=== PATIENT | male | born 1970 | race Caucasian/White ===

== ENCOUNTER → 2018-11-25 | Outpatient (CLI) | payer OTHER ==
[~2018-11-25] MED LIST: ALUMAG30SU PO; AMOX500 PO; ASPI81CH PO; ATOR40TA PO; Amoxicillin500 MG PO; Augmentin 875-1 EACH PO; BCOIRO; CLOP75 PO; FAMO20 PO; GABA300 PO; GLIP5 PO; IBUP800 PO; Isosorbide Mono30 MG PO; LISI5 PO; MELO7.5 PO; METF500 PO; METF500C PO; METO10 PO; METO25 PO; METO5A PO; METR500 PO; Nitroglycerin0.4 MG SL; PROM25 PO; Pepcid20 MG PO; Q PAP PO; RXCODACESY PO; THERMOTABS PO; Tylenol325 MG PO; Zofran Odt4 MG PO
[2018-11-25 20:49] LABS: Campylobacter Sp Not Detected (NOT DETECT)
[2018-11-25 20:50] LABS: Adenovirus F 40/41 Not Detected (NOT DETECT); Astrovirus Not Detected (NOT DETECT); Cryptosporidium Not Detected (NOT DETECT); Cyclospora Cayetanensis Not Detected (NOT DETECT); E. Coli O157 Not Detected (NOT DETECT); Entamoeba Histolytica Not Detected (NOT DETECT); Enteroaggregative E. coli-EAEC Not Detected (NOT DETECT); Enteropathogenic E. coli-EPEC Not Detected (NOT DETECT); Enterotoxigenic E. coli-ETEC Not Detected (NOT DETECT); Giardia Lamblia Not Detected (NOT DETECT); Norovirus GI/GII Not Detected (NOT DETECT); Plesiomonas Shigelloides Not Detected (NOT DETECT); Rotavirus A Not Detected (NOT DETECT); Salmonella Sp Not Detected (NOT DETECT); Sapovirus Not Detected (NOT DETECT); Shiga Toxin-prod E. coli-STEC Not Detected (NOT DETECT); Shigella/Enteroin E. coli-EIEC Not Detected (NOT DETECT); Vibrio Cholerae Not Detected (NOT DETECT); Vibrio Sp Not Detected (NOT DETECT); Yersinia Enterocolitica Not Detected (NOT DETECT)
[2018-11-26 13:11] LABS: Stool Occult Bld Immuno 1 Negative (NEGATIVE)
== END | disposition home or self-care (01) ==
LOC: LAB SHORT 17:31 → LAB 17:31
PROVIDERS: Nurse Practitioner Family
DX: K52.9 Noninfective gastroenteritis and colitis, unspecified (principal)
CPT/HCPCS: 0097U; 82274; 89055

== ENCOUNTER → 2019-01-27 | Outpatient (CLI) | payer OTHER ==
[2019-01-27 15:56] LABS: Microalb/Creat Ratio UR, Rand 4.934 mg/g (0.000-30.000); Microalbumin, Random Urine 6.71 mg/L (0.000-20.000)
== END | disposition home or self-care (01) ==
LOC: LAB SHORT 11:43 → LAB 11:43
PROVIDERS: Nurse Practitioner Family
DX: E11.40 Type 2 diabetes mellitus with diabetic neuropathy, unspecified (principal)
CPT/HCPCS: 82043; 82570

== ENCOUNTER 2020-11-07 17:19 | Inpatient (IN) | payer OTHER ==
[~2020-11-07] VITALS: Ht 167.6 cm; Wt 95.5 kg
[2020-11-07 18:06] LABS: BASOPHILS ABSOLUTE AUTO 0.02 K/mm3 (0.00-0.23); BASOPHILS PERCENT AUTO 0 % (0-2); EOSINOPHILS PERCENT AUTO 0 % (0-6); Hematocrit 40.5 % (37.0-53.0); Hemoglobin 13.9 g/dL (13.5-17.5); IMMATURE GRAN ABSOLUTE AUTO 0.04 K/mm3 (0.00-0.10); IMMATURE GRAN PERCENT AUTO 0 % (0-1); LYMPHOCYTES ABSOLUTE AUTO 0.57 K/mm3 (0.84-5.20); LYMPHOCYTES PERCENT AUTO 6 % (21-46); MONOCYTES ABSOLUTE AUTO 0.78 K/mm3 (0.16-1.47); MONOCYTES PERCENT AUTO 8 % (4-13); Mean Corpuscular HGB Conc 34.3 g/dL (31.5-36.5); Mean Corpuscular Volume 93 fL (80-100); Mean Platelet Volume 11.3 fL (9.1-12.4); NEUTROPHILS ABSOLUTE AUTO 8.14 K/mm3 (1.96-9.15); NEUTROPHILS PERCENT AUTO 85 % (41-73); Platelet Count 261 K/mm3 (150-400); RDW Coefficient Variation 13.2 % (11.7-14.2); RDW Standard Deviation 45.5 fL (35.1-46.3); Red Blood Cell Count 4.35 M/mm3 (4.30-5.90); White Blood Cell Count 9.55 K/mm3 (4.00-11.30)
[2020-11-07 18:35] LABS: Alanine Aminotransfer (ALT/SGP 41 U/L (12-78); Albumin, Blood 2.6 g/dL (3.4-5.0); Albumin/Globulin Ratio 0.5 (0.8-1.8); Alk Phos 70 U/L (50-136); Anion Gap 8 mmol/L (6-16); Aspartate Aminotrans (AST/SGOT 45 U/L (12-37); Bilirubin, Total 0.8 mg/dL (0.1-1.0); Blood Urea Nitrogen 39 mg/dL (8-24); Bun/Creatinine Ratio 40.2 (12.0-20.0); CO2, Blood 23 mmol/L (21-32); Chloride, Blood 99 mmol/L (98-108); Creatinine, Blood 0.97 mg/dL (0.60-1.20); Globulin, Blood 5.4 g/dL (2.2-4.0); Glomerular Filtration Rate >60 (60-); Glucose, Blood 449 mg/dL (70-99); Potassium, Blood 4.9 mmol/L (3.5-5.5); Sodium, Blood 130 mmol/L (136-145); Troponin I 0.229 ng/mL (0.000-0.040)
[2020-11-07 19:15] LABS: PCO2 Arterial 32.1 mmHg (35-45); PO2 Arterial 50.5 mmHg (80-100); pH Blood Arterial 7.44 (7.35-7.45)
[2020-11-08 00:24] LABS: Troponin I 0.239 ng/mL (0.000-0.040)
[2020-11-08 08:25] LABS: BASOPHILS ABSOLUTE AUTO 0.01 K/mm3 (0.00-0.23); BASOPHILS PERCENT AUTO 0 % (0-2); EOSINOPHILS PERCENT AUTO 0 % (0-6); Hematocrit 38.4 % (37.0-53.0); Hemoglobin 12.8 g/dL (13.5-17.5); IMMATURE GRAN ABSOLUTE AUTO 0.05 K/mm3 (0.00-0.10); IMMATURE GRAN PERCENT AUTO 1 % (0-1); LYMPHOCYTES ABSOLUTE AUTO 0.39 K/mm3 (0.84-5.20); LYMPHOCYTES PERCENT AUTO 4 % (21-46); MONOCYTES ABSOLUTE AUTO 0.56 K/mm3 (0.16-1.47); MONOCYTES PERCENT AUTO 6 % (4-13); Mean Corpuscular HGB 31.5 pg (26.0-34.0); Mean Corpuscular HGB Conc 33.3 g/dL (31.5-36.5); Mean Corpuscular Volume 95 fL (80-100); Mean Platelet Volume 11.2 fL (9.1-12.4); NEUTROPHILS ABSOLUTE AUTO 8.67 K/mm3 (1.96-9.15); NEUTROPHILS PERCENT AUTO 90 % (41-73); Platelet Count 252 K/mm3 (150-400); RDW Coefficient Variation 13.1 % (11.7-14.2); RDW Standard Deviation 46.1 fL (35.1-46.3); Red Blood Cell Count 4.06 M/mm3 (4.30-5.90); White Blood Cell Count 9.68 K/mm3 (4.00-11.30)
[2020-11-08 08:49] LABS: Alanine Aminotransfer (ALT/SGP 39 U/L (12-78); Albumin, Blood 2.2 g/dL (3.4-5.0); Albumin/Globulin Ratio 0.4 (0.8-1.8); Alk Phos 66 U/L (50-136); Anion Gap 9 mmol/L (6-16); Aspartate Aminotrans (AST/SGOT 40 U/L (12-37); Bilirubin, Total 0.6 mg/dL (0.1-1.0); Blood Urea Nitrogen 42 mg/dL (8-24); Bun/Creatinine Ratio 46.6 (12.0-20.0); CO2, Blood 21 mmol/L (21-32); CPK Creatine Kinase 232 U/L (39-308); Calcium, Blood 8.9 mg/dL (8.5-10.1); Chloride, Blood 105 mmol/L (98-108); Glomerular Filtration Rate >60 (60-); Glucose, Blood 494 mg/dL (70-99); Potassium, Blood 5.1 mmol/L (3.5-5.5); Sodium, Blood 135 mmol/L (136-145); Total Protein, Blood 7.2 g/dL (6.4-8.2); Troponin I 0.219 ng/mL (0.000-0.040)
--- NOTE | 2020-11-08 10:45 | NUR ---
ADMIT NOTE RECEIVED REPORT FOR LIFEGUARD, PT TO ROOM AT APPROX 0916. 4 PERSON ASSIST TRANSFER WITH SLIDER SHEET. PT ORIENTED TO ROOM AND CALL LIGHT. EDUCATED ON FALL RISK AND RESPIRITORY STATUS. PT REFUSING TO PRONE ON STOMACH, ENCOURAGING PT TO REMAIN ON SIDE. WHEN PT LAYING FLAT ON BACK SPO2 79-81%, ONCE TURNED TO SIDE SPO2 90-93%. PT ALERT, ORIENTED x3; ANXIOUS AND FREQUENTLY REQUESTING WATER. PT ON AIRVO AT 60L AT 89% FIO2, TITRATED TO HIGH FLOW VIA BIPAP, AT 65L AT 90% FIO2. RESP RATE 28-40'S. LS DIM T/O. PT RECEIVING IV STEROIDS AND FLUIDS. WILL CONTINUE TO MONITOR.
--- NOTE | 2020-11-08 11:47 | NUR ---
PT TURNED ON HIS BACK, SPO2 DOWN TO 80'S; RE-EDUCATED PT ON PRONING AND THE NEED TO AT LEAST SLEEP ON HIS SIDE, PT PRONED SELF, SPO2 AT 97%. WILL CONTINUE TO MONITOR.
--- NOTE | 2020-11-08 18:20 | NUR ---
SHIFT SUMMARY PT A&Ox3; FORGETFUL AND NONCOMPLIANT. PT RESTING IN BED, ASSIST WTIH REPOSITIONS ON SIDE AND PRONE. PT ON AIRVO 65L FIO2 % 100; SPO2 88-94%. WHILE IN THE PRONE POSITION PT 95-97%. WHEN PATIENT LYING FLAT ON BACK AND WITH MOVEMENT PT DESATURATES TO 78-84%, SLOW IN RECOVERY. PT HAS BEEN FORGETFUL AT TIMES. REPEITIVTLY REQUESTING. ORAL CARE COMPLETED Q4H. PT DENIES PAIN, CHEST PAIN, NAUSEA AND DIZZINESS. CBG >300 T/O SHIFT, DR PRUETT NOTIFIED, NEW ORDERS TO CHANGE SEMGLEE TO DAILY FROM BID. PT RECEIVED IV STEROIDS. OTHER VSS. NO OTHER ACUTE CHANGES NOTED DURING SHIFT. WILL CONTINUE TO MONITOR UNITL REPORT GIVEN TO ONCOMING RN.
[2020-11-09 04:04] LABS: Hematocrit 40.1 % (37.0-53.0); Hemoglobin 13.2 g/dL (13.5-17.5); Mean Corpuscular HGB 31.5 pg (26.0-34.0); Mean Corpuscular HGB Conc 32.9 g/dL (31.5-36.5); Mean Corpuscular Volume 96 fL (80-100); Mean Platelet Volume 10.9 fL (9.1-12.4); Platelet Count 333 K/mm3 (150-400); RDW Coefficient Variation 13.2 % (11.7-14.2); RDW Standard Deviation 46.5 fL (35.1-46.3); Red Blood Cell Count 4.19 M/mm3 (4.30-5.90); White Blood Cell Count 18.42 K/mm3 (4.00-11.30)
[2020-11-09 04:31] LABS: Anion Gap 8 mmol/L (6-16); Blood Urea Nitrogen 45 mg/dL (8-24); CO2, Blood 23 mmol/L (21-32); Calcium, Blood 9.1 mg/dL (8.5-10.1); Chloride, Blood 111 mmol/L (98-108); Creatinine, Blood 0.82 mg/dL (0.60-1.20); Glomerular Filtration Rate >60 (60-); Glucose, Blood 390 mg/dL (70-99); Potassium, Blood 4.7 mmol/L (3.5-5.5); Sodium, Blood 142 mmol/L (136-145)
--- NOTE | 2020-11-09 06:27 | NUR ---
SHIFT SUMMARY ASSUMED CARE OF PT AT 1900. PT IS A/OX3 WITH TIMES OF FORGETFULNESS. PT DOES NOT REMEMBER RECEIVING ICECHIPS OR IF HE ALREADY HAD AN ALCOHOL SWAB. HEART SOUNDS REGULAR. LUNG SOUNDS HAVE CRACKLES AT THE BASES. PT USED THE AIRVO T/O THE NIGHT, OCCASIONALLY TAKING IT OFF FOR A MOMENT BUT WILL PUT IT BACK IN WHEN TOLD. PT ENCOURAGED TO PRONE BUT WILL NOT STAY PRONED FOR LONG. PT HAS A CATHETER DRAING A LOT OF CLEAR YELLOW URINE. PT C/O BEING THIRST CONSTANTLY AND ASKING FOR WATER OR ICE CHIPS CONSTANTLY. PT BLOOD SUGAR HAS BEEN OVER 350 T/O THE NIGHT. HOSPITALIST CALLED MULTIPLE TIME DUE TO INCREASED HUMALOG NEEDS, EACH TIME ORDERING 10 UNITS OF HUMALOG WITH LITTLE EFFECT. CALL LIGHT IN REACH, BED IN LOWEST POSTION, BED ALARM ON.
--- NOTE | 2020-11-09 12:00 | NUR ---
REASSESSMENT PT HAS BEEN RESTING IN BED THROUGHOUT THE MORNING. CONTINUES TO HAVE SOME COARSE WHEEZES ON R SIDE. MAINTAINING SPO2 90-92% ON HI LACY 80L AND 100% WHEN SUPINE, 96-98% WHILE ON HIS SIDE OR PRONE. PT HAS BEEN TOLERATING WATER SO RECEIVED OK FROM DR. PRUETT TO START PT ON DIET. PT STATES HE ISN'T HUNGRY BUT IS EATING SOME LUNCH CURRENTLY. ALSO RECEIVED ORDERS FROM DR. PRUETT TO DO BLOOD SUGARS AND INSULIN Q6H IF PT ISN'T EATING AND AC/HS IF PT IS. SR, BP STABLE. CONTINUING TO MONITOR.
--- NOTE | 2020-11-09 17:35 | NUR ---
SHIFT SUMMARY PT REMAINS DEPENDENT ON THE HIGH FLOW OXYGEN. HE HAS BEEN AT 80L AND 100% TODAY. HE MAINTAINS SPO2 RIGHT AT 90 WHEN ON HIS BACK AND MID 90S ON HIS SIDE OR STOMACH. PT HAS BEEN COMPLIANT TODAY WITH PRONING WHEN REQUESTED BUT THIS EVENING HE IS GETTING IRRITATED WITH IT. HE SAYS HE IS TIRED OF LAYING ONHIS STOMACH OR BACK. EXPLAINED TO HIM WHY HE NEEDS TO AND WHAT WILL HAPPEN IF HE DOESN'T AND HIS OXYGEN NEEDS GO UP. PT SAYS HE IS BORED AND WANTS TO GO HOME. OFFERED TO TURN ON HIS TV BUT HE REFUSED. ASKED WHAT COULD BE DONE TO HELP ENTERTAIN HIM BUT HE DIDN'T HAVE ANY IDEAS. LUNGS ARE DIM ON THE LEFT, EXP WHEEZE ON THE RIGHT. SR, BP STABLE. CASTRO DRAINING CL YELLOW URINE. PT TOLERATING EATING. SPOKE WITH PT'S SISTER AND PROVIDED UPDATE. CONTINUE TO MONITOR.
--- NOTE | 2020-11-10 05:31 | NUR ---
SHIFT SUMMARY PT CONTINUES TO BE DEPENDENT ON HIGH FLOW O2 THERAPY. RT ATTEMPTED BIPAP FOR SLEEP, AFTER APPROX. 1 HOUR PT REMOVED MASK, DESATTED TO 65%. ONCE THE HIGH FLOW O2 WAS REPLACED SPO2 STABILIZED >90% AFTER A FEW MINUTES. AN ORDER FOR A PRN ANXIOLYTIC WAS OBTAINED. PT PRONED SELF FOR SLEEP AND WAS ABLE TO MAINTAIN SPO2 OF >95% FOR THE DURATION OF PRONE SLEEP. LUNG SOUNDS ARE DIMINISHED ON THE RIGHT AND THERE IS AN EXPIRATORY WHEEZE NOTED ON THE LEFT. NO OTHER ACUTE CHANGES NOTED.
--- NOTE | 2020-11-10 07:24 | NUR ---
ASSUMED CARE: PT CURRENTLY ON AIRVO AT 100% FIO2, SATS IN MID 80S WHEN NOT PRONING. NSR ON TELE. NO FURTHER NEEDS AT THIS TIME.
--- NOTE | 2020-11-10 14:39 | NUR ---
PT CALLED STAFF AND STATED HE NEEDS TO GO HOME BECAUSE HE HAS NO ONE TO TAKE CARE OF HIS DOGS. RN DISCUSSED THIS WITH PT AND WAS VERY BLUNT, REMINDING PT THAT HE REQUIRED 95% FIO2 ON AIRVO AND IS BREATHING RAPIDLY TRYING TO TALK TO STAFF. INFORMED HIM THAT AMA MEANS WE WOULD NOT BE ABLE TO ASSIST OR PROVIDE OXYGEN WHICH MEANS HE WOULD NOT LIKELY MAKE IT OUT THE DOOR BEFORE COLLAPSING. PT STATES HE WILL CALL MORE FAMILY TO DISCUSS AND APPEARS TO UNDERSTAND THAT HE CANNOT SAFELY GO HOME AT THIS TIME.
--- NOTE | 2020-11-10 16:41 | NUR ---
TELE CALLED REPORTING ST CHANGES. EKG DONE SHOWING POSSIBLE INFARCT. PT DENIES CHEST PAIN, NAUSEA OR SHOULDER PAIN. SPOKE WITH DR PRUETT AND SHOWED EKG. ORDERS FOR TROPONIN DUE TO PT DENYING CHEST PAIN. AWAITING LAB TO COME DRAW
--- NOTE | 2020-11-10 18:24 | NUR ---
SHIFT SUMMARY: PT ON AIRVO AT 80L WITH 95% FIO2. STILL GETS DYSPNEIC ON EXERTION. SATS HIGH 80S/LOW 90S ON THIS. DENIES CHEST PAIN. AWAITING TROPONIN LEVEL. NO FURTHER NEEDS AT THIS TIME.
--- NOTE | 2020-11-11 06:49 | NUR ---
SHIFT SUMMARY PT HAS BEEN ASLEEP FOR THE MAJORITY OF THE NIGHT. AT THE BEGINNING OF THE SHIFT PT STATED "I'M GOING HOME TOMORROW", THE PT WAS REORIENTED TO CURRENT SITUATION AND ABILITIES EASILY. PT PRONED SELF FOR SLEEP AND MAINTAINED SPO2 >90% WHILE PRONED, WHEN PT WAS SUPINE SPO2 WOULD RANGE 88-90%. AT ONE POINT THE PT REMOVED THE NASAL CANNULA AND REQUIRED VERBAL REDIRECTION BEFORE THE NASAL CANNULA COULD BE PUT BACK IN PLACE. NO OTHER ACUTE CHANGES NOTED.
--- NOTE | 2020-11-11 07:25 | NUR ---
ASSUMED CARE: PT RESTING QUIETLY ON AIRVO AT 80l AND 95% FIO2. ST ELEVATIONS NOTED ON TELE. NO ACUTE NEEDS AT THIS TIME.
--- NOTE | 2020-11-11 10:34 | NUR ---
REPEAT PARTIAL ECHO COMPLETE, COMPLETE ECHO ALREADY DONE 11/08/20
--- NOTE | 2020-11-11 12:30 | NUR ---
PT STARTED DESATURATING WITH AIRVO, COULD NOT MAINTAIN A O2 SAT GREATER THAN 88%. PT INITIALLY REFUSED TO PUT MASK ON. RN HAD A BLUNT CONVERSATION WITH PT ABOUT HIS OPTIONS INCLUDING CODE STATUS AND INTUBATION VS WEARING BIPAP MASK. PT EVENTUALLY AGREED TO WEAR MASK. AUBRIE ON SETTINGS 16/14 WITH 100% FIO2, SATTING MID 90S. DR PRUETT AWARE
--- NOTE | 2020-11-11 12:47 | NUR ---
pt struggling with wearing bipap. had nursing talk to him about being a dnr and comfort measures. he will comply and wants full treatment. will monitor how he is trending.
--- NOTE | 2020-11-11 19:10 | NUR ---
SHIFT SUMMARY: PT IS ON BIPAP WITH 85% FIO2. PT CONTINUES TO COMPLAIN ABOUT BIPAP AND WANTS IT OFF. STAFF CONTINUES TO BE BLUNT WITH HIM AND TELLING HIM THE POTENTIAL CONSEQUENCES OF NOT KEEPING MASK ON.
--- NOTE | 2020-11-12 05:10 | NUR ---
SHIFT SUMMARY PT CONTINUED TO WEAR MASK THROUGHOUT THE NIGHT, ONE INCIDENT OF LOOSENING THE FIT TO INEFFECTIVENESS WAS CORRECTED WITH EDUCATION. SPO2 MAINTAINED >90% FOR THE DURATION. PT PRONED SELF WHEN ASKED BUT SHIFTED TO SUPINE SHORTLY AFTER AND REFUSED TO PRONE AGAIN. CPAP MASK WAS REMOVED FOR PO MEDS AND SPO2 DROPPED QUICKLY TO 80%, ONCE MASK WAS REPLACED AN SPO2 OF >90% WAS ACHIEVED WITHIN 5 MINUTES. CURRENT CPAP SETTINGS ARE [id number]/80% FIO2. NO OTHER ACUTE CHANGES NOTED.
--- NOTE | 2020-11-12 16:41 | NUR ---
SHIFT SUMMARY NO ACUTE CHANGES THIS SHIFT. PT HAS REMAINED CPAP DEPENDENT THIS SHIFT. CPAP 14, FIO2 TITRATED DOWN TO 80%. PT PLACED ON AIRVO AT 80L, FIO2 100% FOR SHORT BREAK, BUT DID NOT TOLERATE LONG, WITH SPO2 DROPPING TO LOW 80'S QUICKLY. VITAL SIGNS HAVE REMAINED STABLE. NS INFUSING AT 75 ML/HR. CASTRO IN PLACE WITH YELLOW URINE OUTPUT. PT REPOSITIONS SELF INDEPENDENTLY. WILL CONTINUE TO MONITOR AND REPORT OFF TO ONCOMING RN.
--- NOTE | 2020-11-13 06:51 | NUR ---
SHIFT SUMMARY PATIENT SLEPT THROUGHOUT SHIFT, BUT WAS ABLE TO MAKE NEEDS KNOWN TO STAFF WITH USE OF CALL LIGHT. PATIENT IS A&OX4 AND SB ASSIST. THIS MORNING PATIENT DESATTED TO 84% AT LOWEST SPO2 WITH AIRVO @ 80LPM 100% FIO2; SWITCHED TO CPAP W/ PRESSURE 14 90% FIO2. SPO2 INCREASED TO 90'S. NO OTHER MAJOR CHANGES THROUGHOUT SHIFT.
--- NOTE | 2020-11-13 17:11 | NUR ---
Shift summary When care assumed patient on CPAP 14, FIO2 90%. Mid day pt switched to Airvo 70 ;/min, fio2 90%. Dr. Dailey at bedside during this time and updated on care being provided. Pt slow to respond when care assumed but has been move response t/o the day. Aware of location, event, and moves all extrems/turns self in bed. Airvo settings currently 70 L/MIN , FIO2 90%, SPO2 > 88%. NRS 80-90'S. VSS. George in place, clear/yellow output. On phone with family at the moment.
--- NOTE | 2020-11-13 22:29 | NUR ---
SLIDING SCALE COVERAGE CALL PLACED TO DR AUGUSTE, HOSPITALIST LOLLYPOP MACHINE OPERATOR, REGARDING HS BLOOD GLUCOSE LEVEL OF 396, DAY SHIFT INUSLIN DOSAGE CHANGES AND ADMINISTRATIONS WELL SLIDING SCALE DOSE OF [address] AUGUSTE, WILL ONLY GIVE THE SLIDING SCALE DOSAGE FOR GREATER THAN 350 AT THIS TIME. NO FURTHER ORDERS.
--- NOTE | 2020-11-14 06:08 | NUR ---
SHIFT SUMMARY NO MAJOR CHANGES TO PATIENT CONDITION DURING SHIFT. PATIENT USED CPAP AND AIRVO DURING THE NIGHT TO MAINTAIN SPO2 >88%. DISCUSSED OPTION OF PRONING TO PATIENT AND EXPLAINED THE BENEFITS. AT 0345, PATIENT SELF PRONED AND SPO2 INCREASED FROM HIGH 80'S/LOW 90'S TO MID TO HIGH 90'S. AT 0500 PATIENT SELF REPOSITIONED TO SUPINE.
--- NOTE | 2020-11-14 19:46 | NUR ---
SHIFT SUMMARY PT A/OX3-4 AND COOPERATIVE OF CARE; SLOW TO RESPOND. VSS THROUGHOUT SHIFT WITH O2 SATS >94%. PT WAS SWITHCED TO AIRVO @ 70L ON 100% FIO2 AROUND 1500; PT RESPONDED WELL. CASTRO IN PLACE AND DRAINING TO GRAVITY; URINE CLEAR/YELLOW. PT ABLE TO MOVE SELF IN BED.
--- NOTE | 2020-11-14 21:12 | NUR ---
HS BLOOD GLUCOSE SPOKE WITH DR SERRANO, HOSPITALIST MID LEVEL JAVA DEVELOPER, REGARDING PT HS BLOOD GLUCOSE LEVEL OF 401. WILL ADMINISTER ORDERED HIGH SLIDING SCALE COVERAGE DOSE OF 6 UNITS AT THIS TIME. PLAN TO READDRESS LONG ACTING INSULIN COVERAGE IN AM.
--- NOTE | 2020-11-15 07:20 | NUR ---
SHIFT SUMMARY PATIENT REMAINED ON CPAP 14/100% FOR JUST OVER HALF OF THE SHIFT WITH BREAKS USING AIRVO @ 70LPM 100% FIO2. SPO2 MAINTAINED 98-100% W/ CPAP AND HIGH 80'S-LOW 90'S WITH AIRVO. HS CBG WAS ELEVATED AT 401; ORDER OBTAINED FOR 6 UNITS AT THAT TIME WITH MONITORING ON DAY SHIFT. NO OTHER MAJOR CHANGES DURING SHIFT.
--- NOTE | 2020-11-15 17:05 | NUR ---
SHIFT SUMMARY PT REMAINED ON CPAP 14/100% THROUGHOUT SHIFT. PT STRUGGLED WITH ORAL MEDS AND WATER BY PRESENTING WITH COUGHS AFTER INTAKE; SATS DROPPED TO 70'S WHILE TAKING MEDS. PT WAS ALERT AT THE BEGINNING OF THE SHIFT; TOWARDS THE END OF SHIFT PT IS DIFFICULT TO ROUSE. PT DID NOT PRONE THIS SHIFT BUT WAS ABLE TO MOVE TO HIS SIDE ON HIS OWN. CASTRO IN PLACE DRAINING TO GRAVITY; YELLOW URINE. VSS T/O SHIFT WITH O2 SATS >92%.
--- NOTE | 2020-11-16 07:51 | NUR ---
SHIFT SUMMARY PT A+0X4. NO ACUTE EVENTS THIS SHIFT. VSS. O2 SATS MAINTAINED OVER 92% ON CPAP 14 80% FIO2. HR 90'S AND 100'S. DESATS WHILE DRINKING FLUIDS, CAUSING HIM TO COUGH. COUGHED AND DESATED WHILE TAKING MEDICATIONS. PT DENIED ANY PAIN. PT WAS INDEPENDENT WITH CHANGING POSITIONS THROUGHOUT SHIFT. CASTRO IN PLACE DRAINING URINE. LEFT IN BED SLEEPING WITH CALL ALARM AT SIDE
--- NOTE | 2020-11-16 08:00 | NUR ---
pt sitting up in bed eating breakfast, currently on airvo sats in the 80's, ate about half of the breakfast and took po meds one at a time, lungs are course t/o, resp even with some laboring, desats with any movement, has a course cough, placed him back on cpap and turned on side, sats are maintaining at 95% at this time, hrr, tele in place running sr per monitor, see strip, no edema noted, ppp+2, cap refill <3sec, vs stable, afebrile, piv is clear and patent, btx4, abd flat soft nontender, voids via arguello cath draining clear kentrell urine, skin c/w/d, maew, very weak, activity intolerance due to resp, call light in reach.
--- NOTE | 2020-11-16 18:29 | NUR ---
pt hasn't had any acute changes today, he sleeps when left undisturbed, he is allowing us to turn him but will not prone, o2 really drops when changed from cpap to airvo, but recovers quickly, v.s remain stable, call light in reach.
--- NOTE | 2020-11-17 07:17 | NUR ---
SHIFT SUMMARY NO ACUTE EVENTS THIS SHIFT. PT O2 SATS OVER 95% ON CPAP 15 90% FIO2. HR 84 NSR. BP STABLE. PT REPOSITIONED THROUGHOUT NIGHT Q2 HRS. DOES NOT WANT TO PRONE. PT DESATS SOON MASK IS REMOVED. ANXIOUS ABOUT CPAP REMOVAL, REFUSED PO MEDICATION, DID NOT WANT TO SWITCH TO AIRVO. NO PAIN STATED. IN BED RESTING WITH CALL ALARM AT SIDE. WILL CONTINUE TO MONITOR UNTIL REPORT GIVEN.
--- NOTE | 2020-11-17 08:00 | NUR ---
pt laying in bed awake a/ox3, on cpap at this time, sats are 90-92%, states he's ok, lungs are course t/o, resp even and unlabored, no cough noted, hrr, tele in place running sr per tele, see strip, no edema noted, ppp+2, cap refill <3sec, vs stable, afebrile, iv site is clear and patent, btx4, abd flat soft nontender, arguello cath draining clear yellow urine, skin c/w/d, suresh villeda, call light in reach.
--- NOTE | 2020-11-17 18:25 | NUR ---
pt sats dropped to the low 70's today, maxed on bipap, got him to prone, sats maintained in the 90's, he is tolerating it, pulminary consult was ordered, Dr. Lucia notified. call light in reach.l
--- NOTE | 2020-11-17 20:24 | NUR ---
CARE ASSUMPTION PT LYING ON LEFT SIDE W O2 SATS AT 94-96% W 100% FIO2. PT DENYING ANY PAIN OR NAUSEA AT THIS TIME. WP WNL. TEMP 97.7. PT ON BOTH BIOX MONIYOR AND DYNAMAP MMONITOR. PT'S BED TURNED SO HE CAN WATCH TV WHILE PRONING.
--- NOTE | 2020-11-17 22:09 | NUR ---
URINE ANALYSIS SPOKE TO ARTIFICIAL LIMB MAKERLINDA GRAYSON ABOUT NO HX OF UA POST CASTRO AND SHE DID NOT THINK IT WAS NEEDED AT THIS TIME.
--- NOTE | 2020-11-18 05:30 | NUR ---
SALSA DANCE INSTRUCTOR SUMMARY PT IS AXO X4 THIS SHIFT. PT HAS MAINTAINED O2 SATS >92% WHILE PRONED HOWEVER DID HAVE TWO EPISODES WHERE HE DESATURATED INTO THE 70'S WHEN MOVING AROUND AND COUGHING, IT TOOK SEVERAL MINUTES AT 100% FIO2 FOR THE PT TO RECOVER TO 90%. CPAP REMAINS AT 10 W 100% FIO2 THIS SHIFT. PT AFEBRILE THIS SHIFT W PEAK TEMP AT 97.7. TELE SHOWING SR IN THE 70'S ALL SHIFT. PT HAS BEEN NPO THIS SHIFT EXCEPT WHEN GIVEN A DRINK OF WATER WHICH AGGREVATED HIS COUGH CAUSING HIM TO DESAT. MATTHEW P[ATENT AND DRAINED 500ML DARK JILLIAN URINE THIS SHIFT.BP WNL AND STABLE THIS SHIFT. WILL REPORT TO ONCOMING RN.
--- NOTE | 2020-11-18 13:42 | NUR ---
ATTEMPTED TO UPDATE SISTER NO ANSWER AT THIS TIME
--- NOTE | 2020-11-18 17:51 | NUR ---
SHIFT SUMMARY PT ALERT AND ORIENTED X 4. HR STABLE. BP STABLE. OXYGEN SATURATION MAITNAINED ABOVE 90% ON CPAP AT 15 AND 90-100% FIO2. PT AGGITATED AT TIMES D/T NOT BEING ABLE TO TAKE CPAP OFF FOR EXTENDED PERIODS OF TIME TO EAT OR DRINK. PT INFORMED THAT NEW ORDERS FOR CLINIMIX WILL HELP PT MAINAIN ADEQUATE HYDRATION AND NUTRITION AT THIS TIME. PT TEARFUL AT TIMES STATING "IM NOT DOING ANYTHING WRONG" WHEN DESATING. PT PROVIDED WITH COMFORT AND REASURANCE THAT PT IS DOING DOING ALL OF THE PHYSICIANS AND NURSES RECOMMENDATIONS AND THIS SITUATION IS NOT HIS FUALT. PT MORE RELAXED SHIFT HAS GONE ON. ATTEMPTED TO CONTACT PT'S SISTER FOR UPDATE. NO ANSWER AT THIS TIME. PT ABLE TO TOLERATE SMALL BREAKS FROM BIPAP FOR SIPS OF WATER. PT ABLE TO TURN SELF IN BED AND PRONE DURING THE DAY. NS HELD AT THIS TIME D/T CLINIMIX GTT. WILL INFORM PHYSICIAN. CASTRO PATENT AND DRAINING. NO CP OR PRESSURE REPORTED. PT REFUSING ORAL CARE. WILL CONT TO MONITOR UNTIL REPORT GIVEN TO NIGHTSHIFT RN.
--- NOTE | 2020-11-18 18:42 | NUR ---
UPDATE DR. JONES CONSULTED REGARDING PT. D/T PT IN STABLE STATUS DR. JONES TO SIGN OFF AT THIS TIME. DR. AGEE NOTIFIED. ORDERS TO RENAL FUNCTION PANEL AND ORDERS TO D/C NS. SEE EHR.
--- NOTE | 2020-11-18 20:06 | NUR ---
ASSUMED CARE PT IS ALERT AND ORIENTED. PT DENIES CHEST PAIN. PT IS ON CPAP WITH SATS OF 85-93% ON 100% FIO2. WHEN TAKING SIPS OF WATER PT WILL DESAT TO LOW 80'S AND SLOWLY INCREASE. VITALS SIGNS ARE STABLE. PT REPORTS FEELING VERY HUNGRY AND HAS ASKED FOR MILKSHAKES AND FRUIT. HE IS AWARE OF NOT BEING ABLE TO MAINTAIN SATS WHEN TAKING OFF MASK. CALL LIGHT IS WITHIN REACH WILL CONTINUE TO MONITOR PT.
--- NOTE | 2020-11-18 21:38 | NUR ---
PT IS ALERT WITH VEBAL STIMULI OTHERWISE SLEEPING. PT REPORT HADACHE OF 6/10 DENIES NAUSEA. TREMORS ARE VISIBLE WITH HAND EXTENSION. PT DENIES CHEST PAIN. STS THAT HE "FEELS HORRIBLE." VITLAS ARE STABLE AND ON ROOM AIR WITH SATS ABOBE 90%. CALL LIGHT IS WITHIN REACH WILL CONTINUE TO MONITOR.
--- NOTE | 2020-11-18 21:45 | NUR ---
WAS ABLE TO GIVE PT ORAL MEDICATION AND TOLERATED WELL WITH A FEW SIPS. AFTER SATS RECOVERD ABOVE 90% HE HAD A COUPLE OF BITES OF FRUIT WHERE HE THEN DESATED TO LOW 60'S. PT WAS COUGHING. QUICKLY RECOVERED BACK TO HIGH 80'S. THIS NURSE ADVISED HIM THAT WE WOULD HOLD OFF ON ANYTHING PO FOR A BIT. PT REFUSED FRUIT TAKEN FROM BESIDE TABLE. PRONING WAS EPLAINED AND RECOMMENDED. CURRENTLY WITH SATS OF 94% ON CPAP 100% FIO2, WITH OCCASIONAL COUGHING.
[2020-11-19 04:16] LABS: Albumin, Blood 1.7 g/dL (3.4-5.0); Anion Gap 4 mmol/L (6-16); Blood Urea Nitrogen 27 mg/dL (8-24); Bun/Creatinine Ratio 38.7 (12.0-20.0); CO2, Blood 32 mmol/L (21-32); Calcium, Blood 8.6 mg/dL (8.5-10.1); Chloride, Blood 97 mmol/L (98-108); Glomerular Filtration Rate >60 (60-); Glucose, Blood 230 mg/dL (70-99); Phosphorus, Blood 3.1 mg/dL (2.5-4.9); Potassium, Blood 4.2 mmol/L (3.5-5.5); Sodium, Blood 133 mmol/L (136-145)
--- NOTE | 2020-11-19 06:23 | NUR ---
SHIFT SUMMARY PT IS ALERT AND ORIENTED. VITALS ARE STABLE. PT IS ON CPAP 15 AND 100% FI02 WITH SATS MAINTAINING ABOVE 88%. CURRENTLY ON 91%. PT DENIES CHEST PAIN/PRESSURE. PT WAS ABLE TO TAKE SIPS OF WATER, ENSURE AND SOME BITES OF FRUIT BUT WOULD DESAT TO LOW 70'S HIGH 60'S; WOULD QUICKLY RECOVER. PT REPORTED LEG PAIN DUE TO NEUROPATHY, GABAPENTIN WAS ORDERED. WAS UNABLE TO SLEEP AND WAS VERY ANXIOUS. PT HAS NOW BEEN SLEEPING SINCE 0300 AGTER MEDICATED. FLUIDS ARE RUNNING. CALL LIGHT IS WITHIN REACH.
--- NOTE | 2020-11-19 12:00 | NUR ---
Called to assist with patient lou was not doing well and assumed care from Nessa RN. patient proned on BIPAP and sats decreasing and RT and Benefit Authorizer Dr Alvarado came in to intubate. patient was unproned to intubate with 7.5 ET and 26 at teeth. Took quite a long period to get sats to 87%. he was started on Propofol at 60 mcg/kg/min and started shortly on Nimbex at 1 mcg/kg/min. Started NS bolus for Hypotension prior to looking at starting Levophed at 5 mcg/min. Patient was reproned after intubation and PICC line placed in back of right arm.
[2020-11-19 12:34] LABS: PCO2 Arterial 52.8 mmHg (35-45)
[2020-11-19 12:35] LABS: PO2 Arterial 44.6 mmHg (80-100)
--- NOTE | 2020-11-19 13:38 | NUR ---
UPDATE PT BEGAN TO DESAT TO 70%. THIS RN ENTERED ROOM, ATTEMPTED TO PUT PT IN PRONE POSITION. RT AT BEDSIDE. HEAD WOOD GRINDER NOTIFIED TO PLEASE INFORM DR. LYNCH. DR. LYNCH IN ROOM. PT CONT TO DESAT TO 50'S. ORDERS FOR PT TO BE INTUBATED AT THIS TIME. THIS RN ATTEMPTED TO CALL PT'S SISTER BEFORE INTUBATION. PT ANXIOUS AND CRYING. ATTEMPTED TO PROVIDE COMFORT. HEAD WOOD GRINDER, CLINICIAL COORDINATOR, ICU STAFF, RT, ORTHOPHOTO TECH/DRAFTSMAN, ASSISTING WITH INTUBATION. X RAY DONE AT BEDSIDE ONCE INTUBATED TO CONFIRM PLACEMENT. PT IN PRONE POSITION. SEE EHR FOR VENT SETTINGS. REPORT TO BE GIVEN TO LINDA ROCHE.
[2020-11-19 15:04] LABS: PO2 Arterial 71.7 mmHg (80-100)
[2020-11-19 15:06] LABS: PCO2 Arterial 78.4 mmHg (35-45); pH Blood Arterial 7.17 (7.35-7.45)
[2020-11-19 15:25] LABS: BASOPHILS ABSOLUTE AUTO 0.03 K/mm3 (0.00-0.23); BASOPHILS PERCENT AUTO 0 % (0-2); EOSINOPHILS PERCENT AUTO 0 % (0-6); Hematocrit 36.6 % (37.0-53.0); Hemoglobin 12.3 g/dL (13.5-17.5); IMMATURE GRAN ABSOLUTE AUTO 0.23 K/mm3 (0.00-0.10); IMMATURE GRAN PERCENT AUTO 1 % (0-1); LYMPHOCYTES ABSOLUTE AUTO 0.39 K/mm3 (0.84-5.20); LYMPHOCYTES PERCENT AUTO 2 % (21-46); MONOCYTES ABSOLUTE AUTO 0.83 K/mm3 (0.16-1.47); MONOCYTES PERCENT AUTO 4 % (4-13); Mean Corpuscular HGB 32.6 pg (26.0-34.0); Mean Corpuscular HGB Conc 33.6 g/dL (31.5-36.5); Mean Corpuscular Volume 97 fL (80-100); Mean Platelet Volume 10.7 fL (9.1-12.4); NEUTROPHILS ABSOLUTE AUTO 17.99 K/mm3 (1.96-9.15); NEUTROPHILS PERCENT AUTO 92 % (41-73); Platelet Count 596 K/mm3 (150-400); RDW Coefficient Variation 12.5 % (11.7-14.2); RDW Standard Deviation 45.1 fL (35.1-46.3); Red Blood Cell Count 3.77 M/mm3 (4.30-5.90); White Blood Cell Count 19.47 K/mm3 (4.00-11.30)
--- NOTE | 2020-11-19 18:00 | NUR ---
Patient remains proned. Earlier we gave per Dr Alvarado 2.5 mg Metoprolol and dropped rate to low 100's from 130-1`40's and sats and BP dropped systolic to 70 and stats 60's and took a little to come back up. He is currently in the low 90s sats, Systolics 120's he has been on Nimbex titrated up to 3 mcg/kg/min and titrated to ventaltion over breathing and coughing. Propofol at 60 mcg/kg/min, NS at 75 ml/hr, Levophed at 20 mcg/min and systolic right wrist is 118.
--- NOTE | 2020-11-19 21:47 | NUR ---
TEMP. RECTAL TEMP DONE- 99.4. SKIN COOL TO TOUCH AND CLAMY.
--- NOTE | 2020-11-19 23:32 | NUR ---
ASSESS CONTINUE ON VENT/SEDATED/PARALYZED/IN PRONE POSITION. NO COUGH WITH SXN, NO SPUTUM.TO4 IS 4 OUT OF 4. WEANING LEVO PER MAP>65 SEE FLOWSHEET FOR RATES. CASTRO DRAINING CL/YELLOW URINE. NEXT TROP SENT TO LAB WAITING RESULTS. Q2 REPOSITIONING AND ORAL CARE- PT TOLERATING WELL. CONTINUE ASSESSMENTS AND CARE.
[2020-11-20 03:41] LABS: BASOPHILS ABSOLUTE AUTO 0.02 K/mm3 (0.00-0.23); BASOPHILS PERCENT AUTO 0 % (0-2); EOSINOPHILS PERCENT AUTO 0 % (0-6); Hematocrit 35.5 % (37.0-53.0); Hemoglobin 11.7 g/dL (13.5-17.5); IMMATURE GRAN ABSOLUTE AUTO 0.15 K/mm3 (0.00-0.10); IMMATURE GRAN PERCENT AUTO 1 % (0-1); LYMPHOCYTES ABSOLUTE AUTO 0.78 K/mm3 (0.84-5.20); LYMPHOCYTES PERCENT AUTO 4 % (21-46); MONOCYTES ABSOLUTE AUTO 1.16 K/mm3 (0.16-1.47); MONOCYTES PERCENT AUTO 6 % (4-13); Mean Corpuscular HGB 31.5 pg (26.0-34.0); Mean Corpuscular Volume 95 fL (80-100); Mean Platelet Volume 9.8 fL (9.1-12.4); NEUTROPHILS ABSOLUTE AUTO 17.41 K/mm3 (1.96-9.15); NEUTROPHILS PERCENT AUTO 89 % (41-73); Platelet Count 455 K/mm3 (150-400); RDW Coefficient Variation 12.6 % (11.7-14.2); RDW Standard Deviation 43.9 fL (35.1-46.3); Red Blood Cell Count 3.72 M/mm3 (4.30-5.90); White Blood Cell Count 19.52 K/mm3 (4.00-11.30)
[2020-11-20 03:58] LABS: Albumin, Blood 1.7 g/dL (3.4-5.0); Anion Gap 3 mmol/L (6-16); Blood Urea Nitrogen 27 mg/dL (8-24); Bun/Creatinine Ratio 30.7 (12.0-20.0); CO2, Blood 30 mmol/L (21-32); Calcium, Blood 8.2 mg/dL (8.5-10.1); Chloride, Blood 99 mmol/L (98-108); Creatinine, Blood 0.88 mg/dL (0.60-1.20); Glomerular Filtration Rate >60 (60-); Glucose, Blood 330 mg/dL (70-99); Magnesium, Blood 2.1 mg/dL (1.6-2.4); Phosphorus, Blood 3.8 mg/dL (2.5-4.9); Potassium, Blood 4.8 mmol/L (3.5-5.5); Sodium, Blood 132 mmol/L (136-145)
[2020-11-20 04:14] LABS: PCO2 Arterial 55.5 mmHg (35-45); PO2 Arterial 79.2 mmHg (80-100); pH Blood Arterial 7.32 (7.35-7.45)
--- NOTE | 2020-11-20 06:10 | NUR ---
END OF SHIFT NOTE PT REMAINS ON VENT/SEDATED/PARALYZED/PRONE POSITION. VENT HAS BEEN WEANED OVERNIGHT BY RT CURRENTLY AC/VC RATE 26/TV 360/ FI02 80%/ PEEP 14. BS: DECREASED T/O. SXN: NO SECREATIONS. NIMBEX ON 2- NO COUGH, NO GAG, TO4 3 OUT OF 4. CONTINUE ASSESSMENTS AND CARE TILL REPORT OFF TO ONCOMING SHIFT RN.
--- NOTE | 2020-11-20 09:38 | NUR ---
0800 ASSESSMENT: PT REMAINS INTUBATED, SEDATED, AND PARALYZED. TO4 4/4 WITH NIMBEX @ 2 MCG/KG/MIN. PT TOLERATING VENTILATION WELL WITH PROPOFOL @ 55 MCCG/KG/MIN FOR SEDATION. NO COUGH, GAG, OR SWALLOW DUE TO PARALYTIC. LUNGS DIMINISHED IN THE BASES, BUT NO ETT SECRETIONS. ETT TO VENT: AC 26, TV 360, FIO2 80%, PEEP 14-SATS>90%. PT TO REMAIN PRONE FOR NOW PER DR. LYNCH. ECG SHOWS SR TO ST WITH RATE 90-110'S. PT IS AFEBRILE. MAINTAINS MAP 60-65 WITH LEVOPHED @ 4 MCG/MIN. OGT CLAMPED AFTER ROUTINE AM MEDS GIVEN-SEE EMAR. CASTRO WITH MODERATED AMOUNT OF YELLOW URINE OUTPUT. NO NOTED SKIN BREAKDOWN. HOWEVER, SOME PERIORBITAL EDEMA NOTED-DUE TO PRONE POSITIONING. WILL CONTINUE TO TURN HEAD FROM SIDE TO SIDE AND REPOSITION ARMS EVERY 2 HOURS. PT TO HAVE BOTH CH1V AND ECHO ONCE SUPINE. WILL REQUEST DIETART CONSULT TO START TF.
--- NOTE | 2020-11-20 12:05 | NUR ---
PT REMAINS INTUBATED, SEDATED, AND PARALYZED. TO4 STILL 4/4-PT TOLERATING MECHANICAL VENTILATION WELL IN PRONE POSITION. FIO2 TITRATED DOWN TO 70% AND SATS TRENDING 95% HR 90'S SR. MAP TRENDING>60-65 WITH LEVOPHED @ 3 MCG/MIN.
--- NOTE | 2020-11-20 13:18 | NUR ---
PT SISTER GUILLERMO UPDATED TO CURRENT STATUS AND PLAN OF CARE.
--- NOTE | 2020-11-20 16:01 | NUR ---
PT MAINTAINS SATS>90% ON FIO2 60%-NO OTHER VENT CHANGES. STILL NO ETT SECRETIONS. WILL DISCUSS WITH DR. LYNCH WHEN SHE INTENDS TO HAVE PT TURNED TO SUPINE POSITION. ECHO AND CH1 STILL PENDING. DIETARY CONSULT HAS BEEN PLACED FOR ENTERAL FEEDINGS. CASTRO WITH ADEQUATE AMOUNT OF YELLOW URINE OUTPUT. PERIORBITAL EDEMA CONTINUES, BUT DOES NOT SEEM WORSE THAN PREVIOUS ASSESSMENTS.
--- NOTE | 2020-11-20 16:45 | NUR ---
PT PLACED IN SUPINE POSITION-PER DR. LYNCH VERBAL ORDER.GRIP BOSS NOTIFIED.ELECTRO MECHANICAL ASSEMBLER NOTIFIED. PT TOLERATED POSITION CHANGE WELL SATS >90% ON FIO2 60%
--- NOTE | 2020-11-20 17:37 | NUR ---
Echocardiogram completed
--- NOTE | 2020-11-20 19:21 | NUR ---
REPORT RECEIVED-CARE ASSUMED GTT RATES AND VITALS NOTED ON FLOWSHEET. CONTINUE ASSESSMENT AND CARE.
[2020-11-20 21:25] LABS: Source, Urine Catheter
[2020-11-20 21:28] LABS: Bilirubin, Urine Neg (Neg); Blood, Urine Neg (Neg); Glucose Qualitative, Urine Neg (Neg); Ketones, Urine Neg (Neg); Leukocyte Esterase, Urine Neg (Neg); Nitrite, Urine Neg (Neg); Protein, Urine 1+ (Neg); Specific Gravity, Urine 1.015 (1.003-1.022); Urobilinogen, Urine NORM (Normal)
--- NOTE | 2020-11-20 21:36 | NUR ---
FAMILY UPDATED SISTER GUILLERMO UPDATE BY MD AT START OF SHIFT-CALLED FOR RN UPDATE-DONE.
[2020-11-20 22:02] LABS: Appearance, Urine Clear (Clear); Color, Urine Yellow (P-Yellow)
[2020-11-21 03:18] LABS: BASOPHILS ABSOLUTE AUTO 0.02 K/mm3 (0.00-0.23); BASOPHILS PERCENT AUTO 0 % (0-2); EOSINOPHILS PERCENT AUTO 0 % (0-6); Hematocrit 32.5 % (37.0-53.0); Hemoglobin 10.8 g/dL (13.5-17.5); IMMATURE GRAN ABSOLUTE AUTO 0.12 K/mm3 (0.00-0.10); IMMATURE GRAN PERCENT AUTO 1 % (0-1); LYMPHOCYTES ABSOLUTE AUTO 0.95 K/mm3 (0.84-5.20); LYMPHOCYTES PERCENT AUTO 7 % (21-46); MONOCYTES PERCENT AUTO 5 % (4-13); Mean Corpuscular HGB Conc 33.2 g/dL (31.5-36.5); Mean Corpuscular Volume 96 fL (80-100); Mean Platelet Volume 9.9 fL (9.1-12.4); NEUTROPHILS ABSOLUTE AUTO 11.73 K/mm3 (1.96-9.15); NEUTROPHILS PERCENT AUTO 87 % (41-73); Platelet Count 366 K/mm3 (150-400); RDW Coefficient Variation 12.7 % (11.7-14.2); RDW Standard Deviation 45.1 fL (35.1-46.3); Red Blood Cell Count 3.38 M/mm3 (4.30-5.90); White Blood Cell Count 13.52 K/mm3 (4.00-11.30)
[2020-11-21 03:51] LABS: Alanine Aminotransfer (ALT/SGP 35 U/L (12-78); Albumin, Blood 1.6 g/dL (3.4-5.0); Albumin/Globulin Ratio 0.4 (0.8-1.8); Alk Phos 66 U/L (50-136); Anion Gap 3 mmol/L (6-16); Aspartate Aminotrans (AST/SGOT 23 U/L (12-37); Bilirubin, Total 0.2 mg/dL (0.1-1.0); Blood Urea Nitrogen 22 mg/dL (8-24); Bun/Creatinine Ratio 28.3 (12.0-20.0); CO2, Blood 31 mmol/L (21-32); Calcium, Blood 7.9 mg/dL (8.5-10.1); Chloride, Blood 101 mmol/L (98-108); Creatinine, Blood 0.78 mg/dL (0.60-1.20); Globulin, Blood 4.4 g/dL (2.2-4.0); Glomerular Filtration Rate >60 (60-); Glucose, Blood 251 mg/dL (70-99); Magnesium, Blood 2.1 mg/dL (1.6-2.4); Phosphorus, Blood 1.8 mg/dL (2.5-4.9); Potassium, Blood 4.3 mmol/L (3.5-5.5); Sodium, Blood 135 mmol/L (136-145)
[2020-11-21 05:22] LABS: PCO2 Arterial 53.4 mmHg (35-45); pH Blood Arterial 7.37 (7.35-7.45)
--- NOTE | 2020-11-21 06:27 | NUR ---
END OF SHIFT NOTE PT REMAINS ON VENT-SEDATED & PARALYZED. SEE FLOWSHEET FOR CURRENT GTTS, RATES AND VITALS. LEVO HAS BEEN WEANED OFF. CONTINUE ASSESSMENTS AND CARE TILL REPORT OFF TO ONCOMING SHIFT.
--- NOTE | 2020-11-21 08:00 | NUR ---
PT REMAINS INTUBATED, SEDATED, AND PARALYZED. TO4 4/4 WITH NIMBEX @ 2 MCG/KG/MIN. PROPOFOL DRIP CONTINUES @ 55 MCG/KG/MIN. PT TOLERATING VENTILATION WELL/COMPLIANT WITH VENT. LUNGS DIMINISHED THROUGH OUT. AM CH1 DONE. MAINTAINS SATS>90% ON FIO2 65%. ABG WITH PO2 IN 60'S-ANTICIPATE PRONING RAFFAELE THIS AM.ECG SHOWS ST WITH RATE 100-110'S. MAP>[id number] ON SB. TROPONIN @ 1030-ECHO PER DR. LYNCH IS SUSPECT POSSIBLE PE. PT TOLERATING BOLUS FEEDS WITH NO RESIDUAL. CASTRO WITH DECREASED URINE OUTPUT OVER NIGHT. JOSE ORBITAL EDEMA CONTINUES- NOT NOTED SKIN BREAK DOWN. ABDOMEN SLIGHTLY BRUISED FROM LOVENOX INJECTIONS.
--- NOTE | 2020-11-21 10:15 | NUR ---
PT HAS BEEN IN PRONE POSITION FOR APROXIMATELY 2 HOURS. REPOSITIONED HEAD AND ARMS. SATS DOWN TO 87%-FIO2 INCREASED TO 75% TO KEEP SPO2>90%
[2020-11-21 10:58] LABS: Source, Urine Catheter
[2020-11-21 11:27] LABS: Appearance, Urine Clear (Clear); Bilirubin, Urine Neg (Neg); Blood, Urine Neg (Neg); Color, Urine Yellow (P-Yellow); Glucose Qualitative, Urine Neg (Neg); Ketones, Urine Neg (Neg); Leukocyte Esterase, Urine 1+ (Neg); Nitrite, Urine Neg (Neg); Protein, Urine 2+ (Neg); Specific Gravity, Urine 1.015 (1.003-1.022); Urobilinogen, Urine 3+ (Normal)
[2020-11-21 11:59] LABS: Bacteria Few /hpf; Squamous Epithelial Cells Rare /hpf (Few)
[2020-11-21 12:00] LABS: Uric Acid Crystals Mod /hpf
--- NOTE | 2020-11-21 12:00 | NUR ---
PT REMAINS INTUBATED, SEDATED, PARALYZED, AND PRONE. PT TO REMAIN PRONE FOR 16 HOURS. HR TRENDING 90-110'S. MAP>60-65 WITHOUT PRESSOR SUPPORT. LUNGS REMAINS DIMINISHED THROUGH OUT. STILL NO COUGH, GAG, OR SWALLOW. NO ETT SECRETIONS. MAINTAINS SATS>90% ON FIO2 65% CONTINUES TO TOLERATE OGTF WELL. ATTMEPTED TO CALL PT SISTER GUILLERMO TO GIVE HER AN UPDATED-LEFT HER A MESSAGE.
--- NOTE | 2020-11-21 13:50 | NUR ---
PT INCONTINENT OF X-LARGE AMOUNT OF BROWN, LIQUID STOOL. PARTIAL BATH AND LINEN CHANGE COMPLETED-RECTAL TUBE PLACED. SKIN PROTECTANT CREAM APPLIED TO JOSE AREA AND COCCYX. PT POSITIONED TO COMFORT ON RIGHT SIDE. PT WAS AWAKE AND AGITATED WITH RECTAL TUBE PLACEMENT AND BATHING-MED WITH FENTANYL 50 MCG IVP X 1-SEE EMAR.
--- NOTE | 2020-11-21 15:15 | NUR ---
HERE TO SEE PT (CARDIOLOGY) BNP, LIVER PANEL, CK, CKMB ADDED ON TO BLOOD IN LAB. 12 LEAD ECG ORDERED FOR 11/23 AM. INSPRA TO BE INITIATED TODAY-SEE EMAR. 11/23 AM RN TO DISCUSS STARTING VASOTEC WITH DR. METCALF IF BP REMAINS STABLE.
[2020-11-21 15:37] LABS: Albumin, Blood 1.6 g/dL (3.4-5.0); Albumin/Globulin Ratio 0.4 (0.8-1.8); Bilirubin, Direct 0.1 mg/dL (0.0-0.3); Bilirubin, Indirect 0.1 mg/dL (0.1-0.7); Bilirubin, Total 0.2 mg/dL (0.1-1.0); Creatine Kinase MB 5.2 ng/mL (0.0-3.6); Creatine Kinase MB Index 2.4 (0.0-4.0); Globulin, Blood 4.4 g/dL (2.2-4.0)
--- NOTE | 2020-11-21 16:00 | NUR ---
PT REMAINS INTUBATED, SEDATED, AND PARALYZED. TO4 4/4 WITH NIMBEX @2 MCG/KG/MIN-PT COMPLIANT WITH VENT WITH PROPOFOL @ 55 MCG/KG/MIN FOR SEDATION.PT REMAINS AFEBRILE & BP STABLE. HR TRENDING 90-110'S. FIRST DOSE OF INSPRA GIVEN PT-SEE EMAR. PT CONTINUES TO TOLERATE TF WELL.PT SISTER GUILLERMO UPDATED TO CURRENT STATUS AND PLAN OF CARE EARLIER THIS AFTERNOON.
--- NOTE | 2020-11-21 18:00 | NUR ---
SATS DOWN TO 80'S WITH REPOSITIONING OF HEAD AND ARMS-PT REMAINS PRONE. FIO2 TITRATED UP TO 65% TO MAINTAIN SATS>90%
--- NOTE | 2020-11-21 20:00 | NUR ---
ASSUMED CARE OF PT AT 1915. REPORT RECEIVED. PT PRESENTS IN BED. INTUBATED WITH VENT AC 26, Tv 360, FIO2 65 PERCENT, PEEP 8.0. PT IN PRONE POSITION. MAINTAINS SATURATION > 90 PERCENT. HEAD TURN WITH POSITION CHANGE USING 2 PERSON ASSIST AND RESPIRATORY THERAPY. NO ISSUES TO REPORT. WILL REVIEW CHART AND PLAN OF CARE FOR THIS PT.
--- NOTE | 2020-11-22 01:14 | NUR ---
NO RESIDUALS FROM OGT TO NOTE. HAVE DONE A 2000 BOLUS DOSE OF 180 ML TF AND ANOTHER AT MIDNIGHT. PT HAS BEEN UNPRONE AT MIDNIGHT WITH FOUR PERSON ON TURN, AND RESPIRATORY FOR ETT SECURITY. PT DOES HAVE DESATURATION TO 85 PERCENT. THIS NECCESITATED INCREASING FIO2 TO 85 PERCENT. THIS HAS BROUGHT SATURATIONS TO 90-92 PERCENT. WILL TITRATE FIO2 NEEDED. PT MAINTAINS TRAIN OF 4/4 ON NIMBEX OF 2 MCG'S. WILL CONTINUE TO MONITOR.
[2020-11-22 06:08] LABS: Anion Gap 4 mmol/L (6-16); Blood Urea Nitrogen 23 mg/dL (8-24); Bun/Creatinine Ratio 36.6 (12.0-20.0); CO2, Blood 30 mmol/L (21-32); Calcium, Blood 7.4 mg/dL (8.5-10.1); Chloride, Blood 98 mmol/L (98-108); Creatinine, Blood 0.63 mg/dL (0.60-1.20); Glomerular Filtration Rate >60 (60-); Glucose, Blood 305 mg/dL (70-99); Potassium, Blood 4.2 mmol/L (3.5-5.5); Sodium, Blood 132 mmol/L (136-145)
--- NOTE | 2020-11-22 08:00 | NUR ---
INITIAL ASSESSMENT PATIENT INTUBATED, SEDATED AND PARALYZED. PATIENT UNRESPONSIVE. TOF 4/4. NO BIS MONITORING AVAILABLE AT THIS TIME. PATIENT AFEBRILE. NO SIGNS OF PAIN NOTED. PATIENT ON AC 26, TV 350, PEEP 14, 80% FIO2. LUNGS CLEAR IN UPPER LOBES AND DIMINISHED IN LOWER LOBES. SCANT AMOUNT OF THIN, LIGHT WILDE SECRETIONS NOTED FROM ETT. PATIENT IN SR, HR IN THE 90S. SBP LOW 100S TO 120S. OG IN PLACE. PATIENT RECEIVING 180 ML BOLUS OF VHP Q4H AND 30 ML WATER Q4H OUT OF [place] PUMPS FOR CONTINUOUS FEEDING. DATE OF LAST BM UNKNOWN. PRN SUPPOSITORY GIVEN. CASTRO DRAINING DARK YELLOW COLORED URINE; SEDIMENT NOTED. PERIORBITAL EDEMA NOTED. SCATTERED BRUISES NOTED. NS TKO, PROPOFOL AT 55 MCG/ KG/ MINUTE, NIMBEX AT 2 MCG/ KG/ MINUTE. WILL CONTINUE TO MONITOR PATIENT FREQUENTLY THROUGHOUT SHIFT.
--- NOTE | 2020-11-22 13:00 | NUR ---
PATIENT AFEBRILE. PATIENT REMAINS ON PROPOFOL AND NIMBEX. TOF 4/. CONTINUE TO LACK BIS MONITORING RESOURCES. PATIENT IN PRONE POSITION SINCE THIS AM. PATIENT CONTINUES TO HAVE FAIRLY SIGNIFICANT PERIORBITAL AND SCLERAL EDEMA. HR 90S TO LOW 100S. SBP 90S TO 120S. BLOOD SUGAR OF 333; COVERAGE GIVEN. TUBE FEED BOLUS AND WATER FLUSH GIVEN. WILL CONTINUE TO MONITOR.
--- NOTE | 2020-11-22 15:25 | NUR ---
BIS APPLIED. BIS IN THE 40S. TOF 4/4.
--- NOTE | 2020-11-22 17:17 | NUR ---
PATIENT AFEBRILE. TOF 4/4 AND BIS IN THE 40S. PATIENT ON VENT SETTINGS OF AC 26, TV 360, PEEP 14 AND 75% FIO2. HR IN THE 90S. SBP 90S TO 1-TEENS. TF STARTED AT 25 MLS PER HOUR (GOAL OF 45) WITH 30 ML WATER FLUSH Q4H. NO OTHER ACUTE CHANGES TO NOTE ON AT THIS TIME. WILL CONTINUE TO MONITOR.
--- NOTE | 2020-11-22 18:29 | NUR ---
SHIFT SUMMARY PATIENT REMAINED INTUBATED, SEDATED AND PARALYZED. TOF REMAINED 4/4. BIS OBTAINED TOWARD END OF SHIFT AND REMAINED IN THE 40S. PATIENT CONTINUES TO HAVE SIGNIFICANT SCLERAL AND PERIORBITAL EDEMA. LACRI-LUBE OBTAINED THIS SHIFT. PATIENT REMAINED AFEBRILE. PATIENT REMAINED ON AC 26, TV 350, PEEP 14. FIO2 RANGED FROM 75% TO 100%. FIO2 ABLE TO BE DECREASED AFTER PATIENT PRONED THIS AM. PATIENT HAD SCANT AMOUNT OF THIN, WILDE SECRETIONS OUT FROM ETT. PATIENT RANGED FROM SR TO ST, HR 90S TO LOW 100S. SBP 90S TO 120S. SUPPOSITORY GIVEN THIS SHIFT. PATIENT HAD MULTIPLE SMALL SMEARS. PATIENT GIVEN BOLUS FEEDINGS EVERY 4 HOURS AND THEN ONCE PUMP AVAILABLE VHP STARTED AT 25 MLS/ HOUR WITH 30 ML WATER FLUSH Q4H. TF GOAL OF 45 MLS/ HOUR. BLOOD SUGARS IN THE 300S. CASTRO DRAINED 925 MLS OF DARK YELLOW COLORED URINE WITH SEDIMENT NOTED. NO CHANGES TO SKIN NOTED. PATIENT REPOSITIONED T/O SHIFT. SPUTUM CULTURE SENT TO LAB. PATIENT TO BE UNPRONED AT [address] SKY. REPORT WILL BE GIVEN TO [facility] AIRPLANE PILOT SUPERVISOR NURSE SHORTLY.
--- NOTE | 2020-11-22 20:00 | NUR ---
ASSUMED CARE OF PT AT 1915. REPORT RECEIVED. PT PRESENTS IN BED INTUBATED, PRONE, AND PARALYZED. PT ON NIMBEX AT 2MCG'S, WITH SEDATION WITH PROPOFOL. AC 26, Tv 360. PEEP 14, FIO2 70 PERCENT. POSITIVE TRAIN OF FOUR. WILL REVIEW CHART AND PLAN OF CARE FOR THIS PT.
--- NOTE | 2020-11-23 | NUR ---
HEAD TURNS DONE WITH TWO PERSON ASSIST AND RESPIRATORY THERAPY TO DO HEAD TURNS. PT HAS BEEN INCONTINENT TO STOOL FOUR TIMES THIS SHIFT. FORMED STOOL. TUBE FEEDINGS CONTINUE AT GOAL. MINIMAL RESIDUALS. PT HAS HAD FIO2 TITRATED DOWN TO 60 PERCENT. PT MAINTAINS SATURATIONS > 88 PERCENT. BIS MONITOR REMAINS CONSISTANT 40-60. WILL CONTINUE TO MONITOR.
[2020-11-23 04:08] LABS: BASOPHILS ABSOLUTE AUTO 0.05 K/mm3 (0.00-0.23); BASOPHILS PERCENT AUTO 0 % (0-2); EOSINOPHILS ABSOLUTE AUTO 0.03 K/mm3 (0.00-0.68); EOSINOPHILS PERCENT AUTO 0 % (0-6); Hematocrit 29.8 % (37.0-53.0); Hemoglobin 9.7 g/dL (13.5-17.5); IMMATURE GRAN ABSOLUTE AUTO 0.58 K/mm3 (0.00-0.10); IMMATURE GRAN PERCENT AUTO 5 % (0-1); LYMPHOCYTES ABSOLUTE AUTO 1.33 K/mm3 (0.84-5.20); LYMPHOCYTES PERCENT AUTO 11 % (21-46); MONOCYTES ABSOLUTE AUTO 0.57 K/mm3 (0.16-1.47); MONOCYTES PERCENT AUTO 5 % (4-13); Mean Corpuscular HGB 32.2 pg (26.0-34.0); Mean Corpuscular HGB Conc 32.6 g/dL (31.5-36.5); Mean Corpuscular Volume 99 fL (80-100); Mean Platelet Volume 10.4 fL (9.1-12.4); NEUTROPHILS ABSOLUTE AUTO 9.69 K/mm3 (1.96-9.15); NEUTROPHILS PERCENT AUTO 79 % (41-73); NRBC ABSOLUTE 0.03 K/mm3 (0.00-0.02); NRBC Auto 0.2 /100 WBC (0.0-0.2); Platelet Count 311 K/mm3 (150-400); RDW Standard Deviation 46.6 fL (35.1-46.3); Red Blood Cell Count 3.01 M/mm3 (4.30-5.90); White Blood Cell Count 12.25 K/mm3 (4.00-11.30)
[2020-11-23 04:29] LABS: Anion Gap 3 mmol/L (6-16); Blood Urea Nitrogen 24 mg/dL (8-24); CO2, Blood 32 mmol/L (21-32); Calcium, Blood 7.7 mg/dL (8.5-10.1); Chloride, Blood 102 mmol/L (98-108); Creatinine, Blood 0.71 mg/dL (0.60-1.20); Glomerular Filtration Rate >60 (60-); Glucose, Blood 200 mg/dL (70-99); Potassium, Blood 3.8 mmol/L (3.5-5.5); Sodium, Blood 137 mmol/L (136-145)
--- NOTE | 2020-11-23 05:39 | NUR ---
PT HAS REMAINED PRONE THROUGH THE NIGHT PER MD ORDER. HEAD TURNS DONE TO PROTECT SKIN INTEGRITY. PT HAS HAD 4 INCONTINENT STOOLS THIS NIGHT. DID OPT TO PLACE DIGNISHIELD. PT MAINTAINS 40-60 BIS MONITORING. NEW STRIP NEEDS TO BE PLACED. WILL CONTINUE TO MONITOR PT, AND WILL REPORT OFF TO ONCOMING RN.
--- NOTE | 2020-11-23 08:00 | NUR ---
ASSUMED CARE: REPORT RECEIVED FROM AMADEO Gee RN. ASSUMED CARE OF THIS PT AT APPROX 0700. ON ASSESSMENT, THE PT IS SEDATED W/ PROPOFOL & PARALYZED W/ NIMBEX. BIS READING 35-45 & TOF 3/4. VENT SETTINGS: AC 26/360/14/65% W/ O2 SATS 88-91%. LS DIM T/O. TELE SHOWS SR W/ HR 80-90s. SLIGHT HYPOTENSION W/ SBP 80-90s NOTED AFTER SCHEDULED AM ANTIHYPERTENSIVES. OGT IN PLACE W/ TUBE FEEDS INFUSING AT GOAL RATE, NO RESIDUALS. RECTAL TUBE PATENT/ DRAINING BROWN LIQUID STLS. CASTRO PATENT/ DRAINING DARK YELLOW URINE W/ MOD AMNTS SEDIMENT. SKIN CONDITION OVERALL INTACT. PT PRONE ON ASSUMPTION OF CARE BUT HAS BEEN REPOSITIONED SUPINE PER PROVIDER REQUEST AT 0800. 4 STAFF ASSIST & RT AT BEDSIDE FOR UNPRONING. WILL CONTINUE TO MONITOR & UPDATE NEEDED.
--- NOTE | 2020-11-23 09:30 | NUR ---
DR SKY: PROVIDER AT BEDSIDE TO EVAL PT THIS AM. LASIX ORDERED. NO OTHER CHANGES AT THIS TIME.
--- NOTE | 2020-11-23 12:55 | NUR ---
TUBE FEEDING: RATE OF TUBE FEEDING INCREASED TO 35 ML/HR AT APPROX 1220, W/ NEW GOAL OF 45 ML/HR PER DIETARY.
--- NOTE | 2020-11-23 18:09 | NUR ---
SHIFT SUMMARY: NO ACUTE CHANGES SINCE PRIOR UPDATES. PT REMAINS SEDATED W/ PROPOFOL & PARALYZED W/ NIMBEX. BIS READINGS THIS SHIFT 35-45, TOF 2/4. LS DIM T/O, VENT SETTINGS: AC 26/360/12/60% W/ O2 SATS 89-94% ON AVG. MONITOR SHOWS SR W/ HR 80-90s, HYPOTENSION W/ SBP 90s PERSISTANT. OGT IN PLACE W/ TUBE FEEDS INFUSING, OKAY TO ADVANCE RATE AGAIN AT 1999, PUMP SET TO ALARM AT THAT TIME. RECTAL TUBE PATENT/ DRAINING BROWN LIQUID STLS. CASTRO PATENT/ DRAINING DARK YELLOW URINE. SKIN CONDITION OVERALL INTACT, Q2H REPOSITIONING TO MAINTAIN SKIN INTEGRITY. WILL CONTINUE TO MONITOR & REPORT OFF TO ONCOMING RN.
--- NOTE | 2020-11-23 20:00 | NUR ---
ASSUMED CARE OF PT AT 1915. REPORT RECEIVED. PT PRESENTS IN BED. INTUBATED: VENT AC 26, Tv 360, FIO2 60 % PEEP 12. PT MAINTAINS > 90 % SATURATIONS ON CURRENT SETTINGS. SEE FLOWSHEET FOR DRIP RATES. PLAN TO PRONE PT NEAR 1999 HOUR. WILL COORDINATE WITH RESPIRATORY THERAPY AND STAFF. DIGISHIELD IN PLACE. DRAINS TO BEDSIDE BAG LIQUID BROWN STOOL. WILL REVIEW CHART AND PLAN OF CARE FOR THIS PT.
--- NOTE | 2020-11-24 00:55 | NUR ---
PT HAS BEEN PRONE WITH USE OF FOUR FOR LIFT AND TURN, AND RESPIRATORY THERAPY. NO ISSUES TO REPORT FROM PRONING. HEAD TURNS DONE WITH TWO FOR LIFT, AND RESPIRATORY FOR HEAD TURN. PT HAS SMALL AMOUNT OF WHITE COLORED SECRETIONS FROM ETT. HAS HAD SOME NASAL DRAINAGE THAT IS OBTAINED WITH YAUNKEUR. YELLOW IN COLOR. MODERATE AMOUNT. WILL CONTINUE TO MONITOR.
--- NOTE | 2020-11-24 06:30 | NUR ---
PT HAS REMAINED PRONE THROUGHOUT THE NIGHT. NIMBEX CONTINUES AT 2MCG'S. TRAIN OF FOUR 06/17 - 06/18. HAS MAINTAINED OXYGEN SATURATIONS > 90 PERCENT WITH CURRENT VENT SETTINGS. NO CHANGES IN PREVIOUSLY NOTED ASSESSMENT. WILL CONTINUE TO MONITOR PT, AND WILL REPORT OFF TO ONCOMING RN.
[2020-11-24 06:38] LABS: BASOPHILS ABSOLUTE AUTO 0.05 K/mm3 (0.00-0.23); BASOPHILS PERCENT AUTO 0 % (0-2); EOSINOPHILS ABSOLUTE AUTO 0.06 K/mm3 (0.00-0.68); EOSINOPHILS PERCENT AUTO 0 % (0-6); Hemoglobin 10.4 g/dL (13.5-17.5); IMMATURE GRAN ABSOLUTE AUTO 0.56 K/mm3 (0.00-0.10); IMMATURE GRAN PERCENT AUTO 4 % (0-1); LYMPHOCYTES ABSOLUTE AUTO 1.23 K/mm3 (0.84-5.20); LYMPHOCYTES PERCENT AUTO 9 % (21-46); MONOCYTES ABSOLUTE AUTO 0.65 K/mm3 (0.16-1.47); MONOCYTES PERCENT AUTO 5 % (4-13); Mean Corpuscular HGB Conc 32.5 g/dL (31.5-36.5); Mean Corpuscular Volume 99 fL (80-100); Mean Platelet Volume 10.3 fL (9.1-12.4); NEUTROPHILS ABSOLUTE AUTO 11.93 K/mm3 (1.96-9.15); NEUTROPHILS PERCENT AUTO 82 % (41-73); Platelet Count 300 K/mm3 (150-400); RDW Coefficient Variation 13.5 % (11.7-14.2); RDW Standard Deviation 47.8 fL (35.1-46.3); Red Blood Cell Count 3.25 M/mm3 (4.30-5.90); White Blood Cell Count 14.48 K/mm3 (4.00-11.30)
[2020-11-24 06:57] LABS: Alanine Aminotransfer (ALT/SGP 84 U/L (12-78); Albumin, Blood 1.6 g/dL (3.4-5.0); Albumin/Globulin Ratio 0.4 (0.8-1.8); Alk Phos 87 U/L (50-136); Anion Gap 4 mmol/L (6-16); Aspartate Aminotrans (AST/SGOT 66 U/L (12-37); Bilirubin, Total 0.3 mg/dL (0.1-1.0); Blood Urea Nitrogen 31 mg/dL (8-24); Bun/Creatinine Ratio 45.1 (12.0-20.0); CO2, Blood 33 mmol/L (21-32); Calcium, Blood 8.4 mg/dL (8.5-10.1); Chloride, Blood 99 mmol/L (98-108); Creatinine, Blood 0.69 mg/dL (0.60-1.20); Globulin, Blood 4.5 g/dL (2.2-4.0); Glomerular Filtration Rate >60 (60-); Glucose, Blood 196 mg/dL (70-99); Phosphorus, Blood 3.4 mg/dL (2.5-4.9); Potassium, Blood 3.6 mmol/L (3.5-5.5); Sodium, Blood 136 mmol/L (136-145); Total Protein, Blood 6.1 g/dL (6.4-8.2)
--- NOTE | 2020-11-24 07:40 | NUR ---
ASSUMED CARE: REPORT RECEIVED FROM AMADEO Gee RN. ASSUMED CARE OF THIS PT AT APPROX 0700. ON ASSESSMENT, THE PT IS SEDATED W/ PROPOFOL & PARALYZED W/ NIMBEX. TOF 2/4. LS DIM IN BASES. VENT SETTINGS: AC 26/360/12/60% W/ O2 SATS > 90% ON AVG. MONITOR SHOWS SR-ST W/ HR 90-100s, SLIGHT HYPOTENSION NOTED THIS AM W/ SBP 80-100s. OGT IN PLACE W/ TUBE FEEDS INFUSING AT GOAL RATE, NO RESIDUALS. RECTAL TUBE PATENT/ DRAINING BROWN LIQUID STLS. CASTRO PATENT/ DRAINING DARK YELLOW URINE. SKIN CONDITION OVERALL INTACT. PT CURRENTLY PRONED UNTIL 1200. Q2H REPOSITIONING TO MAINTAIN SKIN INTEGRITY. WILL CONTINUE TO MONITOR & UPDATE NEEDED.
--- NOTE | 2020-11-24 18:32 | NUR ---
SHIFT SUMMARY: NO ACUTE CHANGES SINCE PRIOR UPDATES. PT REMAINS SEDATED W/ PROPOFOL & PARALYZED W/ NIMBEX. TOF 3/4 OR 4/4 AT TIMES, PT REMAINS FULLY SYNCHRONOUS W/ VENT, NO TITRATIONS HAVE BEEN MADE TO NIMBEX INFUSION. LS DIM IN BASES. VENT SETTINGS: AC 26/360/10/60% W/ O2 SATS 88-93%. MONITOR SHOWS SR W/ HR 90s, BP STABLE. OGT IN PLACE W/ TUBE FEEDS INFUSING AT GOAL RATE, NO RESIDUALS. RECTAL TUBE PATENT/ DRAINING BROWN LIQUID STLS. CASTRO PATENT/ DRAINING YELLOW URINE. SKIN CONDITION OVERALL INTACT, Q2H REPOSITIONING TO MAINTAIN SKIN INTEGRITY. WILL CONTINUE TO MONITOR & REPORT OFF TO ONCOMING RN.
--- NOTE | 2020-11-24 20:00 | NUR ---
UPDATE: PRONE W/ RT @ HOB, PT WAS PLACED PRONE W/ R SIDE ELEVATED ON PILLOWS, RLE SUPPORTED W/ PILLOWS. SPO2 INITIALLY 80% WHEN SUPINE W/ 70% FiO2. WHEN PRONED PT PLACED @ 100% FiO2 & SATS INC TO THE 90s. WILL CONTINUE TO MONITOR & TITRATE FiO2 APPROPRIATE FOR PT NEEDS.
--- NOTE | 2020-11-24 21:35 | NUR ---
UPDATE: ASYA BHAT. PT IN TO SEE PT, UPDATED ON PRONING. NO NEW ORDERS. FiO2 TITRATED DOWN TO 70%. NIMBEX GTT OCCLUDED FOR A SHORT TIME. PT APPEARS TO BE UNCOMFORTABLE, HR 1teens & RR ELEVATED SLIGHTLY ABOVE SET RATE ON THE VENT. PT MEDICATED W/ IV ATIVAN & SEDATION INC. WILL CONTINUE TO MONITOR & REPORT APPROPRIATE.
--- NOTE | 2020-11-25 | NUR ---
UPDATE: ASYA BHAT, NIMBEX DC'd ASYA BHAT ON PT. ORDERS RECEIVED TO DC NIMBEX & START FENTANYL GTT. PT BEGINNING TO HAVE CONSISTENT EPISODES OF HYPOTENTION W/ MAPs 60-65. ORDERS FOR LEVOPHED GTT GIVEN. ORDERS PLACED & PT MEDICATED ACCORDINGLY. RESTRAINTS PLACED NOW THAT PT IS NO LONGER PARALYZED. RECTAL TUBE FOUND TO BE LEAKING. DEFLATED, REPLACED, & REINFLATED. APPEARS TO BE DRAINING INTO RECTAL TUBE WELL. WILL CONTINUE TO MONITOR & REPORT APPROPRIATE.
[2020-11-25 04:54] LABS: BASOPHILS ABSOLUTE AUTO 0.05 K/mm3 (0.00-0.23); BASOPHILS PERCENT AUTO 0 % (0-2); EOSINOPHILS ABSOLUTE AUTO 0.06 K/mm3 (0.00-0.68); EOSINOPHILS PERCENT AUTO 1 % (0-6); Hematocrit 31.4 % (37.0-53.0); IMMATURE GRAN ABSOLUTE AUTO 0.36 K/mm3 (0.00-0.10); IMMATURE GRAN PERCENT AUTO 3 % (0-1); LYMPHOCYTES ABSOLUTE AUTO 1.14 K/mm3 (0.84-5.20); LYMPHOCYTES PERCENT AUTO 10 % (21-46); MONOCYTES ABSOLUTE AUTO 0.65 K/mm3 (0.16-1.47); MONOCYTES PERCENT AUTO 5 % (4-13); Mean Corpuscular HGB 31.8 pg (26.0-34.0); Mean Corpuscular HGB Conc 31.8 g/dL (31.5-36.5); Mean Corpuscular Volume 100 fL (80-100); Mean Platelet Volume 10.8 fL (9.1-12.4); NEUTROPHILS PERCENT AUTO 81 % (41-73); NRBC ABSOLUTE 0.02 K/mm3 (0.00-0.02); NRBC Auto 0.2 /100 WBC (0.0-0.2); Platelet Count 251 K/mm3 (150-400); RDW Coefficient Variation 13.9 % (11.7-14.2); RDW Standard Deviation 48.1 fL (35.1-46.3); Red Blood Cell Count 3.14 M/mm3 (4.30-5.90); White Blood Cell Count 11.96 K/mm3 (4.00-11.30)
[2020-11-25 05:13] LABS: Anion Gap 1 mmol/L (6-16); Blood Urea Nitrogen 26 mg/dL (8-24); Bun/Creatinine Ratio 36.6 (12.0-20.0); CO2, Blood 37 mmol/L (21-32); Calcium, Blood 8.4 mg/dL (8.5-10.1); Chloride, Blood 99 mmol/L (98-108); Creatinine, Blood 0.71 mg/dL (0.60-1.20); Glomerular Filtration Rate >60 (60-); Glucose, Blood 217 mg/dL (70-99); Potassium, Blood 3.8 mmol/L (3.5-5.5); Sodium, Blood 137 mmol/L (136-145)
--- NOTE | 2020-11-25 06:30 | NUR ---
SHIFT SUMMARY: PT REMAINS INTUBATED & SEDATED. VENT: AC/VC 26/360, 10/70%. GTTs: PROPOFOL 50mcg/kg/min, FENTANYL 50mcg/hr. SPO2 MAINTAINING >90%. PT NOTED TO HAVE TONGUE SWELLING & DEEP PUNCTURES FROM BROKEN TEETH ON THE UNDERSIDE OF HIS TONGUE. LOWER LIP ALSO APPEARS TO HAVE INCREASED IN SWELLING & BITE BLOCK APPEARS TO HAVE SHIFTED. NIGHTSHIFT RT CALLED TO BEDSIDE TO ASSESS WHO STS DAY SHIFT WILL COME AND OBSERVE. DAYSHIFT RT ARRIVES & AFTER ASSESSMENT BELIEVES PT MAY HAVE HAD THIS SWELLING PREVIOUSLY & PRONING HAS EXACERBATED THE SWELLING & POOR DENTITION WORSENING THE TONGUE INJURY. WILL DISCUSS W/ DAYSHIFT TEAM & CALL HOSPITALIST IF APPROPRIATE. HYPOTENSION HAS RESOLVED, LEVOPHED GTT ON SB FOR APPROX 6hr. PT REMAINS UNRESPONSIVE TO ALL STIMULI, NO GAG OR COUGH. NO SEDATION VACATION THIS SHIFT. WILL CONTINUE TO MONITOR UNTIL REPORT OFF TO ONCOMING RN.
--- NOTE | 2020-11-25 09:55 | NUR ---
DR. LYNCH UPDATED ON PATIENT STATUS. INFORMED THAT LIP AND TONGUE ARE ENLARGED AND PURPLE IN COLOR. INFORMED THAT PATIENT'S TONGUE CONTINUES TO SLIP OUT OF MOUTH AND BETWEEN TEETH. NO ORDERS RECEIVED AT THIS TIME.
--- NOTE | 2020-11-25 11:26 | NUR ---
INITIAL ASSESSMENT PATIENT INTUBATED AND SEDATED. COUGH AND GAG NOTED WITH ETT SUCTIONING, OTHERWISE PATIENT UNRESPONSIVE. SCLERAL AND PERIORBITAL EDEMA NOTED. PATIENT AFEBRILE. NO SIGNS OF PAIN NOTED AT THIS TIME. PATIENT ON VENT SETTINGS OF AC 26, TV 360, PEEP 10 AND 70% FIO2. LUNGS DIMINISHED THROUGHOUT. SMALL AMOUNT OF THIN, WHITE SECRETIONS NOTED WITH ETT SUCTIONING. PATIENT IN SR, HR IN THE 90S. SBP 90S TO LOW 100S. PATIENT RECEIVING TF AT GOAL RATE WITH 30 ML FLUSH Q4H. RECTAL TUBE IN PLACE DRAINING BROWN, LIQUID STOOL. BOTTOM LIP AND TONGUE BOTH ENLARGED AND DARKENED IN COLOR. TONGUE CONTINUES TO SLIDE OUT OF MOUTH AND GET CLAMPED DOWN ON BY JAW AND TEETH. TONGUE CONTINUALLY BEING PUSHED BACK IN MOUTH AND BITE BLOCK READJUSTED. CASTRO IN PLACE DRAINING DARK YELLOW URINE. SCATTERED BRUISES NOTED. PATIENT PRONE AT THIS TIME. PROPOFOL INFUSING AT 50 MCG/ KG/ MINUTE, FENTANYL AT 50 MCG/ HOUR, NS TKO. BED LOW, CALL LIGHT IN REACH. WILL CONTINUE TO MONITOR PATIENT FREQUENTLY THROUGHOUT SHIFT.
--- NOTE | 2020-11-25 12:05 | NUR ---
PATIENT AFEBRILE. LACRI-LUBE APPLIED TO EYEBALLS. HR IN THE 80S. SBP IN THE 1-TEENS. BLOOD SUGAR OF 254. NO OTHER ACUTE CHANGES TO NOTE ON AT THIS TIME.
--- NOTE | 2020-11-25 13:15 | NUR ---
PATIENT SUPINATED. FIO2 DECREASED TO 60% AND PATIENT REMAINS WITH SATS IN 90S.
--- NOTE | 2020-11-25 16:00 | NUR ---
PATIENT AFEBRILE. HR IN THE 80S. SBP IN THE 90S. PATIENT RECEIVED BED BATH. NO OTHER ACUTE CHANGES TO NOTE ON AT THIS TIME.
--- NOTE | 2020-11-25 17:49 | NUR ---
PATIENT REPOSITIONED TO RIGHT SIDE SHORT TIME AGO AND DECREASED FROM 55 TO 45 MCG/ KG/ MINUTE OF PROPOFOL. NO OTHER ACUTE CHANGES OCCURRED IN PATIENT BESIDES SLIGHT DECREASE IN SEDATION AND REPOSITION. PATIENT DROPPED SATS INTO 50S ON FIO2 OF 50%. RT CALLED TO ROOM AND PATIENT INCREASED TO 100% FIO2. SATS CAME UP SHORT TIME AFTER TO HIGH 90S. PATIENT FIO2 THEN DECREASED AGAIN AFTER ADJUSTING FINGER PROBES. PATIENT AGAIN IN 50S. PATIENT INCREASED TO 100% AGAIN. ETT FOUND TO BE OUT TO 23 CM. ETT PLACED BACK AT 26 CM BY RT. STILL REMAINED ON 100% FIO2. DR. LYNCH INFORMED AND CAME TO LOOK AT PATIENT. PATIENT REMAINS ON FIO2 OF 100% AT THIS TIME. NO ORDERS RECEIVED AT THIS TIME.
--- NOTE | 2020-11-25 18:44 | NUR ---
SHIFT SUMMARY PATIENT REMAINED INTUBATED AND SEDATED. NO SIGNS OF PAIN NOTED THIS SHIFT. PATIENT REMAINED AFEBRILE. LACRI-LUBE GIVEN TO PATIENT 2X THIS SHIFT TO PROTECT EYES. PATIENT REMAINED ON AC 26, TV 360 AND PEEP 10. PATIENT ABLE TO BE TITRATED DOWN TO 50% FIO2 DURING SHIFT BUT AROUND 1700 PATIENT DESATTED DOWN INTO 50S AND HAD TO BE INCREASED TO 100% FIO2. PATIENT CONTINUED TO HAVE SMALL AMOUNT OF THIN, WHITE SECRETIONS FROM ETT. PATIENT REMAINED IN SR, HR 80S TO 90S. SBP 80S TO 1-TEENS. TF REMAINED INFUSING AT GOAL RATE. 50 MLS DRAINED FROM RECTAL TUBE. CASTRO DRAINED 375 MLS OF DARK YELLOW COLORED URINE. PATIENT REPOSITIONED THROUGHOUT SHIFT. PATIENT SUPINATED AROUND 1300. PATIENT RECEIVED COMPLETE BED BATH THIS SHIFT. SISTER CALLED FOR UPDATE TODAY. BED LOW, CALL LIGHT IN REACH. REPORT WILL BE GIVEN TO ASSUMING VISITOR SERVICES SPECIALIST NURSE SHORTLY.
--- NOTE | 2020-11-25 19:30 | NUR ---
ASSUMING PT CARE: PT IS INTUBATED, SEDATED. VENT: AC/VC 16/360, 10/100%. GTTs: PROPOFOL 65mcg/kg/min, FENTANYL 50mcg/hr. +COUGH, +GAG W/ ORAL CARE, NO OTHER INTENTIONAL MOVEMENT OR RESPONSE NOTED W/ STIMULI. SPO2 DIFFICULT TO MAINTAIN, ONLY 75-85% @ 100% FiO2. RR INC SLIGHTLY, 28-30. HR NOW INTERMITTENTLY IRREGULAR 60s-90s W/ INTERMITTENT PACs. RT & PRONE TEAM ARE AWARE, PT TO BE PRONE RAFFAELE WHEN PRONE TEAM IS AVAILABLE.
--- NOTE | 2020-11-25 21:30 | NUR ---
UPDATE: PRONE PRONE TEAM @ BEDSIDE W/ RT @ HOB. PT PLACED PRONE W/OUT DIFF. R SIDE ELEVATED ON PILLOWS. EYES LUBRICATED & TAPED SHUT. FiO2 REMAINS @ 100% & SATS REMAIN 80-85%. MONITOR INDICATES SINUS TACH @ 103. RT INC PEEP FROM 10 TO 12 & PT APPEARS TO BE RESPONDING WELL.
--- NOTE | 2020-11-26 01:30 | NUR ---
UPDATE: PT AGITATION & NEW SLASHER HAND ORDERS. PT CONTINUES TO BE RESTLESS, W/ HIGH PEAK PRESSURES & AT TIMES ASYNCHRONOUS W/ THE VENT. HR NOW low 100s. SPOKE W/ HOSPITALIST DR PEACE REGARDING INC SLASHER HAND PARAMETERS TO 50mcg-100mcg/hr. HE AGREES & ORDERS GIVEN. FENTANYL GTT INC TO 75mcg/hr.
[2020-11-26 03:40] LABS: BASOPHILS ABSOLUTE AUTO 0.04 K/mm3 (0.00-0.23); BASOPHILS PERCENT AUTO 0 % (0-2); EOSINOPHILS ABSOLUTE AUTO 0.26 K/mm3 (0.00-0.68); EOSINOPHILS PERCENT AUTO 2 % (0-6); Hematocrit 30.1 % (37.0-53.0); Hemoglobin 9.7 g/dL (13.5-17.5); IMMATURE GRAN PERCENT AUTO 2 % (0-1); LYMPHOCYTES ABSOLUTE AUTO 0.94 K/mm3 (0.84-5.20); LYMPHOCYTES PERCENT AUTO 7 % (21-46); MONOCYTES ABSOLUTE AUTO 0.67 K/mm3 (0.16-1.47); MONOCYTES PERCENT AUTO 5 % (4-13); Mean Corpuscular HGB 32.6 pg (26.0-34.0); Mean Corpuscular HGB Conc 32.2 g/dL (31.5-36.5); Mean Corpuscular Volume 101 fL (80-100); Mean Platelet Volume 10.6 fL (9.1-12.4); NEUTROPHILS ABSOLUTE AUTO 11.21 K/mm3 (1.96-9.15); NEUTROPHILS PERCENT AUTO 84 % (41-73); NRBC ABSOLUTE 0.03 K/mm3 (0.00-0.02); NRBC Auto 0.2 /100 WBC (0.0-0.2); Platelet Count 215 K/mm3 (150-400); RDW Coefficient Variation 14.1 % (11.7-14.2); Red Blood Cell Count 2.98 M/mm3 (4.30-5.90); White Blood Cell Count 13.42 K/mm3 (4.00-11.30)
[2020-11-26 03:55] LABS: Anion Gap 2 mmol/L (6-16); Blood Urea Nitrogen 35 mg/dL (8-24); Bun/Creatinine Ratio 48.8 (12.0-20.0); CO2, Blood 36 mmol/L (21-32); Chloride, Blood 98 mmol/L (98-108); Creatinine, Blood 0.72 mg/dL (0.60-1.20); Glomerular Filtration Rate >60 (60-); Glucose, Blood 186 mg/dL (70-99); Magnesium, Blood 1.6 mg/dL (1.6-2.4); Potassium, Blood 4.1 mmol/L (3.5-5.5); Sodium, Blood 136 mmol/L (136-145)
--- NOTE | 2020-11-26 05:00 | NUR ---
UPDATE: PE STUDY SCHEDULED FOR AM. SPOKE W/ COMMUNICATIONS PROGRAM MANAGER LAST NIGHT BEFORE PT WAS PRONED TO SEE IF THE STUDY COULD BE DONE BEFORE 0500 WHILE THE PT IS SUPINE. CT WAS UNAVAILABLE & PT BEGAN TO BE UNSTABLE. DISCUSSED W/ CAN INTAKE WORKER A PLAN TO SUPINE PT BEFORE SCHEDULED CT & THEN TO PRONE HIM BACK AFTER IMAGING. DISCUSSED CONCERNS FOR PT'S INSTABILITY & INCREASING VENT REQUIREMENTS. PLAN TO WAIT ON PE STUDY UNTIL AFTER PT IS SUPINE & MORE STABLE. WILL DISCUSS W/ DAY SHIFT RN.
--- NOTE | 2020-11-26 06:31 | NUR ---
SHIFT SUMMARY: PT REMAINS INTUBATED, SEDATED. VENT: AC/VC 26/300, 12/80%. GTTs: PROPOFOL 45mcg/kg/min, FENTANYL 100mcg/hr. AT TIMES +COUGH, +GAG W/ ORAL CARE. NO OTHER RESPONSE TO PAIN OR INTENTIONAL MOVEMENT NOTED. VENT REQUIREMENTS INC ONLY SOMEWHAT AFTER PRONING LAST NIGHT, PEEP NOW 12 & FiO2 STILL REMAINS @ 80% W/ SPO2 91%. INTERMITTENT EPISODES OF HYPOTENSION AFTER FENTANYL WAS INCREASED TO 100mcg/hr. MAPs >65 BUT OVER THE PAST HR HAVE BEEN TRENDING DOWN W/ MAPs 58-60. CALLED PHARMACY FOR LEVOPHED GTT. NO DRAINAGE FROM RECTAL TUBE. 425cc DARK JILLIAN CASTRO OUTPUT. PLAN FOR PE STUDY ONCE PT IS PLACED SUPINE. WILL CONTINUE TO MONITOR UNTIL REPORT OFF TO ONCOMING RN.
--- NOTE | 2020-11-26 08:00 | NUR ---
INITIAL ASSESSMENT PATIENT INTUBATED AND SEDATED. PATIENT HAS +GAG AND COUGH REFLEX WITH SUCTIONING, OTHERWISE PATIENT UNRESPONSIVE. LACRI-LUBE PLACED IN EYEBALLS. SCLERA AND JOSE-ORBITAL EDEMA NOTED. PATIENT AFEBRILE. NO SIGNS OF PAIN NOTED AT THIS TIME. PATIENT ON AC 26, TV 360, PEEP OF 12 AND 80% FIO2. LUNGS DIMINISHED THROUGHOUT. ETT AT 26. SCANT AMOUNT OF WHITE SECRETIONS NOTED FROM ETT WITH SUCTIONING THIS AM. PATIENT IN ST, HR IN THE LOW 100S. SBP 80S TO 90S. SCHEDULED VASOTEC AND INSPRA HELD THIS AM FOR SBP LESS THAN 95. TF IN PLACE INFUSING AT GOAL RATE. RECTAL TUBE IN PLACE; NO OUTPUT ON YARN SALVAGER LAST NIGHT. CASTRO DRAINING DARK YELLOW URINE. SCATTERED BRUISES NOTED. PATIENT PRONE AT THIS TIME. FENTANYL INFUSING AT 100 MCG/ MINUTE, PROPOFOL AT 45 MCG/ KG/ MINUTE, NS TKO. BED LOW, CALL LIGHT IN REACH. WILL CONTINUE TO MONITOR PATIENT FREQUENTLY THROUGHOUT SHIFT.
--- NOTE | 2020-11-26 09:00 | NUR ---
DR. LYNCH UPDATED ON PATIENT STATUS. INFORMED THAT WBCS AND BUN INCREASING. INFORMED THAT PATIENT TACHYCARDIC AND HYPOTENSIVE THIS AM. INFORMED THAT PATIENT DID NOT RECEIVE SCHEDULED INSPRA AND VASOTEC THIS AM. INFORMED THAT PEEP AT 12 AND FIO2 AT 80%. INFORMED THAT FENTANYL DRIP INCREASED TO 100 MCG/ HOUR ON DIAL MOUNTER. INFORMED THAT CT-PE NOT PERFORMED YET PATIENT PRONED. NO ORDERS RECEIVED AT THIS TIME.
--- NOTE | 2020-11-26 12:00 | NUR ---
PATIENT AFEBRILE. NO CHANGE TO VENT SETTINGS. HR IN THE 90S. SBP IN THE 90S. NO OTHER CHANGES TO NOTE ON AT THIS TIME.
[2020-11-26 14:27] LABS: Source, Urine Catheter
[2020-11-26 14:30] LABS: Appearance, Urine Clear (Clear); Bilirubin, Urine Neg (Neg); Blood, Urine 2+ (Neg); Color, Urine Yellow (P-Yellow); Glucose Qualitative, Urine Neg (Neg); Ketones, Urine Neg (Neg); Leukocyte Esterase, Urine 1+ (Neg); Nitrite, Urine Neg (Neg); Protein, Urine 2+ (Neg); Urobilinogen, Urine 2+ (Normal); pH, Urine 6.5 (5.0-8.0)
[2020-11-26 15:08] LABS: Bacteria Mod /hpf; White Blood Cells, Urine 0-2 /hpf (0-5)
[2020-11-26 15:09] LABS: Squamous Epithelial Cells Not Seen /hpf (Few)
--- NOTE | 2020-11-26 16:00 | NUR ---
PATIENT AFEBRILE. PATIENT REMAINS ON SAME VENT SETTINGS. HR IN THE 80S. SBP IN THE 80S. NO OTHER ACUTE CHANGES TO NOTE ON AT THIS TIME. WILL CONTINUE TO MONITOR.
--- NOTE | 2020-11-26 18:37 | NUR ---
SHIFT SUMMARY PATIENT REMAINED INTUBATED AND SEDATED. PATIENT REMAINED WITH +GAG AND COUGH WITH SUCTIONING. PATIENT RECIEVED PRN LACRI-LUBE X2 THIS SHIFT. PATIENT REMAINED AFEBRILE. PATIENT REMAINED ON AC 26, TV 360, PEEP 12 AND 80% FIO2. LUNGS REMAINED DIMINISHED THROUGHOUT. PATIENT CONTINUED TO HAVE SMALL TO SCANT AMOUNT OF THIN, WHITE SECRETIONS FROM ETT. PATIENT SR TO ST, HR 80S TO LOW 100S. TF REMAINED AT GOAL RATE. RECTAL TUBE DC'D NO OUTPUT FOR 24 HOURS. CASTRO DRAINED 635 MLS OF DARK YELLOW COLORED URINE. NO CHANGES TO SKIN NOTED. PATIENT REPOSITIONED T/O SHIFT. FENTANYL DRIP REMAINED AT 100 MCG/ HOUR, PROPOFOL AT 45 MCG/ KG/ MINUTE AND NS TKO. BLOOD SUGARS 180 AND 119. PATIENT SUPINATED AROUND 1300. PATIENT TAKEN TO CT FOR CHEST. NEW SPUTUM AND URINE CULTURES SENT TO LAB. PATIENT HAD COMPLETE BED BATH THIS SHIFT. PATIENT APPEARS WITHOUT PAIN OR DISTRESS AT THIS TIME. BED LOW, CALL LIGHT IN REACH. WILL BE GIVING REPORT TO ONCOMING HOSPITAL MEDICAL ASSISTANT NURSE SHORTLY.
--- NOTE | 2020-11-26 20:29 | NUR ---
ASSUMING PT CARE: PT RESTING SUPINE. INTUBATED & SEDATED. VENT: AC/VC 26/360, 12/80%. GTTs: PROPOFOL 45mcg/kg/min, FENTANYL 100mcg/hr. UNRESPONSIVE TO NOXIOUS STIMULI, NO GAG, COUGH W/ ORAL CARE. EYES LUBRICATED, NO SIGNIFICANT CORNEAL REFLEX. SEE INITIAL SHIFT ASSESSMENT. PLAN TO PRONE PT ONCE TEAM ARRIVES. WILL CONTINUE TO MONITOR & REPORT APPROPRIATE.
--- NOTE | 2020-11-26 21:32 | NUR ---
UPDATE: PRONE. RT @ HOB. RN @ BEDSIDE W/ PRONING TEAM. PT REPOSITIONED PRONE W/ HEAD TURNED TOWARDS THE R SIDE, RUE ELEVATED & RLE ANGLED, SUPPORTED W/ PILLOWS. PT TOLERATED POSITION CHANGE VERY WELL W/O ACUTE CHANGES IN VS. NO ECTOPY NOTED. MAP 70. SPO2 96% ON 100% FiO2. CONTINUES TO BE SYNCHRONOUS W/ THE VENT.
[2020-11-27 03:58] LABS: BASOPHILS ABSOLUTE AUTO 0.06 K/mm3 (0.00-0.23); BASOPHILS PERCENT AUTO 1 % (0-2); EOSINOPHILS ABSOLUTE AUTO 0.36 K/mm3 (0.00-0.68); EOSINOPHILS PERCENT AUTO 3 % (0-6); Hematocrit 29.2 % (37.0-53.0); Hemoglobin 9.2 g/dL (13.5-17.5); IMMATURE GRAN ABSOLUTE AUTO 0.22 K/mm3 (0.00-0.10); IMMATURE GRAN PERCENT AUTO 2 % (0-1); LYMPHOCYTES ABSOLUTE AUTO 0.96 K/mm3 (0.84-5.20); LYMPHOCYTES PERCENT AUTO 7 % (21-46); MONOCYTES ABSOLUTE AUTO 0.81 K/mm3 (0.16-1.47); MONOCYTES PERCENT AUTO 6 % (4-13); Mean Corpuscular HGB 32.1 pg (26.0-34.0); Mean Corpuscular HGB Conc 31.5 g/dL (31.5-36.5); Mean Corpuscular Volume 102 fL (80-100); Mean Platelet Volume 10.9 fL (9.1-12.4); NEUTROPHILS ABSOLUTE AUTO 10.72 K/mm3 (1.96-9.15); NEUTROPHILS PERCENT AUTO 82 % (41-73); Platelet Count 203 K/mm3 (150-400); RDW Coefficient Variation 14.6 % (11.7-14.2); RDW Standard Deviation 51.8 fL (35.1-46.3); Red Blood Cell Count 2.87 M/mm3 (4.30-5.90); White Blood Cell Count 13.13 K/mm3 (4.00-11.30)
[2020-11-27 04:12] LABS: Albumin, Blood 1.5 g/dL (3.4-5.0); Anion Gap 1 mmol/L (6-16); Blood Urea Nitrogen 33 mg/dL (8-24); CO2, Blood 36 mmol/L (21-32); Calcium, Blood 7.9 mg/dL (8.5-10.1); Chloride, Blood 99 mmol/L (98-108); Creatinine, Blood 0.73 mg/dL (0.60-1.20); Glomerular Filtration Rate >60 (60-); Glucose, Blood 155 mg/dL (70-99); Phosphorus, Blood 2.9 mg/dL (2.5-4.9); Potassium, Blood 3.9 mmol/L (3.5-5.5); Sodium, Blood 136 mmol/L (136-145)
--- NOTE | 2020-11-27 04:40 | NUR ---
UPDATE: SKIN BREAKDOWN. UPON REPOSITIONING PT'S HEAD. SM AREA OF BREAKDOWN NOTED TO THE AURICLE OF THE L EAR W/ INITIAL STAGES OF SLOUGHING. DIME-SIZED AREA OF BREAKDOWN ALSO FOUND ON THE [place] AREA OF THE L CHEEK BENEATH THE ETT SUE. "MEPITEL ONE" DRESSING APPLIED TO BOTH AREAS. WILL DISCUSS W/ DAYSHIFT RN TO TAKE PHOTOS FOR CHART ONCE PT IS PLACED SUPINE & OTHER AREAS CAN BE FURTHER INSPECTED. DISCUSSED SUE REPOSITIONING W/ RT, ROHINI, WHO WILL MAKE NOTE FOR PT TO HAVE A CLOTH & TAPE SUE PLACED TODAY.
--- NOTE | 2020-11-27 06:23 | NUR ---
SHIFT SUMMARY: PT REMAINS INTUBATED & SEDATED. VENT: AC/VC 26/360, 12/80%. GTTs: PROPOFOL 55mcg/kg/min, FENTANTYL 100mcg/hr. PLACED PRONE @ 2100. INITIALLY TOLERATED WELL. HOWEVER W/ TURNS, PT REQUIRED MORE PROGRESSIVELY MORE TIME TO RECOVER W/ EPISODES OF MAPs OF 65 & SUSTAINED HYPOXIA IN THE low 80s @ 100% FiO2. INJURIES TO TONGUE APPEAR TO BE WORSE W/ MOD AMT OF BRIGHT RED BLOOD & SLOUGHING OF THE UNDERSIDE OF THE TONGUE. NO BM THIS SHIFT. 550cc DARK, JILLIAN URINE OUTPUT. WILL CONTINUE TO MONITOR UNTIL REPORT OFF TO ONCOMING RN.
--- NOTE | 2020-11-27 09:35 | NUR ---
ASSUMED CARE OF PT, REPORT RCV'D FROM LINDA HURTADO. PT INTUBATED AND SEDATED. VENT SETTINGS AC 26/360/12/80%. PROPOFOL @ 55 MCG/KG/MIN, FENTANYL GTT @ 100 MCG/HR. PT WITHDRAWS FROM PAINFUL STIMULI, FAILS TO FOLLOW COMMANDS. LUNG SOUNDS CLEAR BILATERAL UPPER/LOWER LUNGS WITH SMALL AMOUNT OF BLOOD TINGED SPUTUM FROM ETT. SIGNIFICANT SWELLING TO LOWER LIPS AND TONGUE, TONGUE HAS ABRASIONS FROM TEETH. VHP @ GOAL 45 ML/HR. CASTRO PATENT AND DRAINING TO GRAVITY.
--- NOTE | 2020-11-27 10:57 | NUR ---
UPDATED PT'S SISTER GUILLERMO ON PT'S STATUS AND PLAN OF CARE
--- NOTE | 2020-11-27 17:39 | NUR ---
SHIFT SUMMARY NO ACUTE CHANGES THIS SHIFT. VENT SETTINGS AND SEDATION REMAIN UNCHANGED T/O SHIFT. 500 ML DARK TEA COLORED URINE WITH SEDIMENT. PT SUPINATED AT 1330. VSS T/O SHIFT. WILL REPORT TO ONCOMING NURSE.
[2020-11-28 03:57] LABS: BASOPHILS ABSOLUTE AUTO 0.06 K/mm3 (0.00-0.23); BASOPHILS PERCENT AUTO 1 % (0-2); EOSINOPHILS ABSOLUTE AUTO 0.47 K/mm3 (0.00-0.68); EOSINOPHILS PERCENT AUTO 4 % (0-6); Hematocrit 28.4 % (37.0-53.0); Hemoglobin 8.9 g/dL (13.5-17.5); IMMATURE GRAN ABSOLUTE AUTO 0.16 K/mm3 (0.00-0.10); IMMATURE GRAN PERCENT AUTO 1 % (0-1); LYMPHOCYTES ABSOLUTE AUTO 0.95 K/mm3 (0.84-5.20); LYMPHOCYTES PERCENT AUTO 9 % (21-46); MONOCYTES ABSOLUTE AUTO 0.69 K/mm3 (0.16-1.47); MONOCYTES PERCENT AUTO 6 % (4-13); Mean Corpuscular HGB 31.7 pg (26.0-34.0); Mean Corpuscular HGB Conc 31.3 g/dL (31.5-36.5); Mean Corpuscular Volume 101 fL (80-100); Mean Platelet Volume 10.6 fL (9.1-12.4); NEUTROPHILS ABSOLUTE AUTO 8.71 K/mm3 (1.96-9.15); NEUTROPHILS PERCENT AUTO 79 % (41-73); NRBC ABSOLUTE 0.02 K/mm3 (0.00-0.02); NRBC Auto 0.2 /100 WBC (0.0-0.2); Platelet Count 216 K/mm3 (150-400); RDW Standard Deviation 53.7 fL (35.1-46.3); Red Blood Cell Count 2.81 M/mm3 (4.30-5.90); White Blood Cell Count 11.04 K/mm3 (4.00-11.30)
[2020-11-28 04:33] LABS: Anion Gap 1 mmol/L (6-16); Blood Urea Nitrogen 33 mg/dL (8-24); Bun/Creatinine Ratio 48.7 (12.0-20.0); CO2, Blood 34 mmol/L (21-32); Calcium, Blood 8.1 mg/dL (8.5-10.1); Chloride, Blood 98 mmol/L (98-108); Creatinine, Blood 0.68 mg/dL (0.60-1.20); Glomerular Filtration Rate >60 (60-); Glucose, Blood 182 mg/dL (70-99); Magnesium, Blood 2.3 mg/dL (1.6-2.4); Phosphorus, Blood 3.1 mg/dL (2.5-4.9); Potassium, Blood 4.3 mmol/L (3.5-5.5); Sodium, Blood 133 mmol/L (136-145)
[2020-11-28 05:27] LABS: PCO2 Arterial 61.1 mmHg (35-45); PO2 Arterial 59.3 mmHg (80-100); pH Blood Arterial 7.38 (7.35-7.45)
--- NOTE | 2020-11-28 14:08 | NUR ---
REASSESSMENT PT REMAINS SEDATED AND INTUBATED. HE HAS BEEN HYPOTENSIVE THIS MORNING AFTER RECEIVING VASOTEC AND LEVOPHED EVENTUALLY HAD TO BE STARTED, TITRATING ABLE. HIS LUNGS ARE CLEAR, BLOODY ORAL SECRETIONS AND SMALL AMT THICK, WILDE SPUTUMM FROM ETT. PT UNPRONED AT NOON. NO OTHER CHANGES FROM EARLIER ASSESSMENT. PT'S SISTER GUILLERMO UPDATED VIA PHONE.
--- NOTE | 2020-11-28 17:30 | NUR ---
SHIFT SUMMARY PT REMAINS INTUBATED AND SEDATED. WITH SEDATION VACATION THIS AFTERNOON PT OPENED HIS EYES AND APPEARED TO WEAKLY MOVE HIS FEET WHEN ASKED TO WIGGLE HIS TOES. HE VERY WEAKLY MOVED ALL EXTREMITIES, ALTHOUGH NOT ON COMMAND. SEDATION RESTARTED AFTER 30 MINUTES. HIS LUNGS REMAIN CLEAR. STILL GETTING BLOODY SECRETIONS FROM ETT. SR TO ST IN THE LOW 100S. CONTINUES ON LEVOPHED FOR BP SUPPORT. TOLERATING TUBE FEEDS. LESS THAN 5ML RESIDUAL UPON CHECK. CASTRO DRAINING YELLOW URINE. SPOKE WITH PT'S SISTER AND PROVIDED HER UPDATE. CONTINUING TO MONITOR.
--- NOTE | 2020-11-29 06:00 | NUR ---
CONT INTUBATED, SEDATED W PROPOFOL AND FENTANYL. PT WAS PRONED AT BEGINNING OF SHIFT, AND REMAINS PRONED. CONT W LEVOPHED 6MCG, BP STABLE, CONT SR/ST NO ECTOPY, LOW GRADE FEVER. BLOOD TINGED SECRETIONS PER ETT, AND ALSO ORALLY. PT WAS PLACED IN SL REVERSE TREND POSITION AND TURNED FOR SKIN CARE. NO RESIDUALS PER TUBE FEED, NO STOOL.
--- NOTE | 2020-11-29 18:49 | NUR ---
SHIFT SUMMARY NO ACUTE CHANGES THIS SHIFT. PT HAS REMAINED INTUBATED AND SEDATED. PT WITH INCREASING O2 REQUIREMENTS THIS EVENING. VENT SETTINGS CURRENTLY AC 26, TV 360, PEEP 14, FIO2 90%. PT WITH BLOOD NOTED WITH ORAL SUCTION. MINIMAL ETT SECRETIONS. PT REMAINS SEDATED WITH PROPOFOL AT 50 MCG/KG/MIN AND FENTANYL AT 100 MCG/HR. PICC TO PACHECO REMAINS C/D/I. OGT IN PLACE WITH TF INFUSING AT GOAL RATE. CASTRO REMAINS IN PLACE WITH YELLOW URINE OUTPUT NOTED. SBW RESTRAINTS IN PLACE. VITAL SIGNS STABLE. WILL CONTINUE TO MONITOR AND REPORT OFF TO ONCOMING RN.
[2020-11-30 04:10] LABS: BASOPHILS ABSOLUTE AUTO 0.04 K/mm3 (0.00-0.23); BASOPHILS PERCENT AUTO 0 % (0-2); EOSINOPHILS ABSOLUTE AUTO 0.35 K/mm3 (0.00-0.68); EOSINOPHILS PERCENT AUTO 3 % (0-6); Hematocrit 27.3 % (37.0-53.0); Hemoglobin 8.5 g/dL (13.5-17.5); IMMATURE GRAN ABSOLUTE AUTO 0.09 K/mm3 (0.00-0.10); IMMATURE GRAN PERCENT AUTO 1 % (0-1); LYMPHOCYTES ABSOLUTE AUTO 0.92 K/mm3 (0.84-5.20); LYMPHOCYTES PERCENT AUTO 8 % (21-46); MONOCYTES ABSOLUTE AUTO 1.01 K/mm3 (0.16-1.47); MONOCYTES PERCENT AUTO 9 % (4-13); Mean Corpuscular HGB 32.1 pg (26.0-34.0); Mean Corpuscular HGB Conc 31.1 g/dL (31.5-36.5); Mean Corpuscular Volume 103 fL (80-100); Mean Platelet Volume 10.3 fL (9.1-12.4); NEUTROPHILS ABSOLUTE AUTO 8.59 K/mm3 (1.96-9.15); NEUTROPHILS PERCENT AUTO 78 % (41-73); Platelet Count 311 K/mm3 (150-400); RDW Coefficient Variation 15.4 % (11.7-14.2); RDW Standard Deviation 57.1 fL (35.1-46.3); Red Blood Cell Count 2.65 M/mm3 (4.30-5.90)
[2020-11-30 04:29] LABS: Anion Gap 2 mmol/L (6-16); Blood Urea Nitrogen 32 mg/dL (8-24); Bun/Creatinine Ratio 43.4 (12.0-20.0); CO2, Blood 35 mmol/L (21-32); Calcium, Blood 8.6 mg/dL (8.5-10.1); Chloride, Blood 99 mmol/L (98-108); Creatinine, Blood 0.74 mg/dL (0.60-1.20); Glomerular Filtration Rate >60 (60-); Glucose, Blood 118 mg/dL (70-99); Potassium, Blood 4.4 mmol/L (3.5-5.5); Sodium, Blood 136 mmol/L (136-145)
--- NOTE | 2020-11-30 06:08 | NUR ---
SHIFT SUMMARY VERY MINIMAL CHANGES THRUNIGHT. HAVE INCREASED PROPOFOL DRIP FROM 55 TO 60 MCG/KG/MIN, LEVOPHED FROM 3 TO 4 MCG/MIN, NO CHANGE IN FENTANYL DRIP. ASSESSMENT IS CHARTED, VSS. WILL CONTINUE TO MONITOR.
--- NOTE | 2020-11-30 11:05 | NUR ---
Ethics consultation service provided. Medical history, case details and clinical prognositications reviewed with the hernandez stakeholders. 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 He is now requiring vassopressors for BP management and is suspected to have an anoxic brain injury. His co-morbities include Type-II Diabetes, cardiovascular issues, acute hypoxemic respiratory failure, and pneumonia, etiologically associated with Covid-19. The intesivist was agreeable to ordering an EEG study and having a sequential organ failure assessment perfomred. This will help the medical team ascertain the degree of neurologic injury sustained by the patient, and give us better visibility to his mortality index. If our findings are bleak, I will facilitate a de-escalation of care conversation with the principals sister. Thank you for this consult. Bakari Arnett ThD
[2020-11-30 11:25] LABS: Albumin, Blood 1.3 g/dL (3.4-5.0); Albumin/Globulin Ratio 0.3 (0.8-1.8); Bilirubin, Direct 0.3 mg/dL (0.0-0.3); Bilirubin, Indirect 0.1 mg/dL (0.1-0.7); Bilirubin, Total 0.4 mg/dL (0.1-1.0); Globulin, Blood 4.8 g/dL (2.2-4.0); Total Protein, Blood 6.1 g/dL (6.4-8.2)
--- NOTE | 2020-11-30 14:08 | NUR ---
Case conferenced with Bakari Arnett re: current status, prognosis and interventions with family. Current plan of care reviewed. Bakari will cont to be the communication person for family and providers.
--- NOTE | 2020-11-30 16:46 | NUR ---
SHIFT SUMMARY NO ACUTE CHANGES THIS SHIFT. PT REMAINS INTUBATED AND SEDATED. PT VENT SETTINGS AC 26, TV 360, PEEP 14, FIO2 100%. PT WITH PROPOFOL ON STANDBY FOR AROUND 4 HOURS THIS SHIFT FOR EEG. PROPOFOL RESTARTED AT 60 MCG/KG/MIN AFTER EEG DUE TO ASYNCHRONY WITH THE VENT. WITH PROPOFOL ON STANDBY, PT WITHOUT ANY PURPOSEFUL MOVEMENTS NOTED AND PT DOES NOT AROUSE TO VERBAL OR NOXIOUS STIMULI. VITAL SIGNS STABLE. PT WITH LEVOPHED ON STANDBY AT THIS TIME. OGT IN PLACE WITH TF INFUSING AT 10 ML/HR GOAL RATE. PICC TO PACHECO REMAINS C/D/I. FENTANYL PAINT FACTORY WORKER INFUSING AT 100 MCG/HR AND NS TKO. CASTRO REMAINS IN PLACE WITH YELLOW URINE OUTPUT NOTED. SBW RESTRAINTS IN PLACE. FAMILY UPDATED VIA PHONE. WILL CONTINUE TO MONITOR AND REPORT OFF TO ONCOMING RN.
[2020-12-01 03:23] LABS: PCO2 Arterial 60.3 mmHg (35-45); pH Blood Arterial 7.39 (7.35-7.45)
--- NOTE | 2020-12-01 06:19 | NUR ---
SHIFT SUMMARY PATIENT HAS SLEPT WELL THRU NIGHT. HAD HYPOGLYCEMIC EVENT THIS A.M., GAVE D50, SBG BACK UP TO 140 ON RECHECK. LEVOPHED STAYED OFF THRU NIGHT. TOLERATED PRONING WELL. ASSESSMENT IS CHARTED. VSS. WILL CONTINUE TO MONITOR.
--- NOTE | 2020-12-01 09:00 | NUR ---
ASSUMED CARE FROM NOC SHIFT. PATIENT REMAINS INTUBATED/SEDATED, NO CHANGES ON VENT SETTINGS, WILL TITRATE FIO2 TO KEEP SATS >88%. SUCTIONED VERY SCANT CREAM WILDE COLOR VIA ETT. TOLERATED TUBE FEEDS AT GOAL RATE 10ML/HR. CASTRO PATENT. PATIENT REMAINS IN PRONE POSITION. WILL CHANGE ARMS/HEAD POSITION EVERY 2 HRS. CONTINUE TO MONITOR AND TX PRN.
--- NOTE | 2020-12-01 11:21 | NUR ---
SISTER GUILLERMO CALLED, UPDATED ON PATIENTS STATUS AND ANSWERED ALL QUESTIONS. DID INFORM HERE THAT DR OR INTERDISCIPLINARY PERSON WILL CALL HERE WITH ADDITIONAL UPDATE.
[2020-12-01 12:15] LABS: CPK Creatine Kinase 124 U/L (39-308); Triglycerides 194 mg/dL (30-160)
--- NOTE | 2020-12-01 13:18 | NUR ---
BP SOFT WITH MAP 60. WILL RESTART LEVOPHED GTT AT 2MCG. CONTINUE TO MONITOR AND TX PRN. SPOKE WITH DR DOSS REGARDING LOW BLOOD SUGARS. WILL HOLD LONG ACTING INSULIN TODAY. WILL GET A CXR TO RECHECK TUBE PLACE DUE TO SMALL CUFF LEAK.
[2020-12-01 15:31] LABS: PO2 Arterial 82.9 mmHg (80-100); pH Blood Arterial 7.43 (7.35-7.45)
--- NOTE | 2020-12-01 18:25 | NUR ---
SHIFT SUMMARY PATIENT REMAINS INTUBATED WITH VENT SETTINGS AC 24/400/16/85% WITH SATS 87%. NO SECRETIONS VIA ETT TODAY. LUNGS REMAIN CLEAR. SEDATED WITH PROPOFOL AND FENTANYL PROPERTY STAFF ACCOUNTANT GTT'S. BP VERY SOFT TODAY WITH MAP STAYING IN LOW 60'S. RESTARTED LEVOPHED GTT; 3MCG/HR. ABD ROUND WITH BT'S. NO BOWEL MOVEMENT TODAY. ADDED MOM TO BOWEL CARE ALONG WITH DOCUSATE. TOLERATING TUBE FEEDINGS AT GOAL RATE 10ML/HR. CASTRO PATENT WITH DARK JILLIAN COLOR. SISTER GUILLERMO BEEN UPDATED. CXR TODAY, ADVANCE ETT 1CM; NOW 25CM AT LIP. BLOOD SUGARS CONTINUE TO DECREASE. WILL STOP ALL INSULIN SUBQ AND D50 IV X1 GIVEN. CONTINUE TO MONITOR AND WILL REPORT OFF TO NOC SHIFT.
--- NOTE | 2020-12-02 06:17 | NUR ---
SHIFT SUMMARY NO ACUTE CHANGES OVERNIGHT, OTHER THAN PT HAD FIRST BOWEL MOVEMENT IN 6 DAYS. ASSESSMENT IS CHARTED. VSS. WILL CONTINUE TO MONITOR.
--- NOTE | 2020-12-02 07:44 | NUR ---
Received report from Bret MCKEON. Patient is proned, sedated. He has 7.5 ET and is 25cm at teeth with vent settings of 24/400/90/16 and sats low 90%'s . He has PICC line to PACHECO and dressing intact and site WNL's and is infusing Propofol at 60 mcg/kg/min, Levophed 5 mcg/min, Fentanyl 100 mcg/hr and NS TKO. He also has PowerGlide in DAVID infusing NS TKO for Abx's. He has OG in place with VHP at 10ml/hr and 30 ml water flushes q4. He has 14Fr arguello draining to gravity yellow urine and approx 350 mls currently.
--- NOTE | 2020-12-02 10:00 | NUR ---
Patient received partial bath prior to un-proning. Dr Crooks by to see patient and no changes. No changes to vent and or gtt. suction tubing changed out.
[2020-12-02 10:24] LABS: BASOPHILS ABSOLUTE AUTO 0.07 K/mm3 (0.00-0.23); BASOPHILS PERCENT AUTO 1 % (0-2); EOSINOPHILS PERCENT AUTO 5 % (0-6); Hematocrit 28.4 % (37.0-53.0); Hemoglobin 8.6 g/dL (13.5-17.5); IMMATURE GRAN ABSOLUTE AUTO 0.19 K/mm3 (0.00-0.10); IMMATURE GRAN PERCENT AUTO 1 % (0-1); LYMPHOCYTES ABSOLUTE AUTO 1.26 K/mm3 (0.84-5.20); LYMPHOCYTES PERCENT AUTO 10 % (21-46); MONOCYTES ABSOLUTE AUTO 1.08 K/mm3 (0.16-1.47); MONOCYTES PERCENT AUTO 8 % (4-13); Mean Corpuscular HGB 30.9 pg (26.0-34.0); Mean Corpuscular HGB Conc 30.3 g/dL (31.5-36.5); Mean Corpuscular Volume 102 fL (80-100); Mean Platelet Volume 10.7 fL (9.1-12.4); NEUTROPHILS ABSOLUTE AUTO 9.96 K/mm3 (1.96-9.15); NEUTROPHILS PERCENT AUTO 75 % (41-73); NRBC ABSOLUTE 0.03 K/mm3 (0.00-0.02); NRBC Auto 0.2 /100 WBC (0.0-0.2); Platelet Count 456 K/mm3 (150-400); RDW Coefficient Variation 15.9 % (11.7-14.2); RDW Standard Deviation 57.6 fL (35.1-46.3); Red Blood Cell Count 2.78 M/mm3 (4.30-5.90); White Blood Cell Count 13.26 K/mm3 (4.00-11.30)
[2020-12-02 10:43] LABS: Anion Gap 1 mmol/L (6-16); Blood Urea Nitrogen 29 mg/dL (8-24); Bun/Creatinine Ratio 42.6 (12.0-20.0); CO2, Blood 35 mmol/L (21-32); Calcium, Blood 8.4 mg/dL (8.5-10.1); Chloride, Blood 99 mmol/L (98-108); Creatinine, Blood 0.68 mg/dL (0.60-1.20); Glomerular Filtration Rate >60 (60-); Glucose, Blood 108 mg/dL (70-99); Potassium, Blood 4.2 mmol/L (3.5-5.5); Sodium, Blood 135 mmol/L (136-145)
--- NOTE | 2020-12-02 11:35 | NUR ---
No significant changes with patient. No changes to vent setting and current settings of 24/400/100/16 and sats 94%. Levophed remains at 5 mcg/min for systolics in the 90's.
--- NOTE | 2020-12-02 12:45 | NUR ---
Report received from Giovanni MCKEON. Pt . remains intubated and sedated on 60mcg propofol. vent settings unchg'd at 24/400/16/100% with SAO2 at 94%. Lungs coarse T/O. Fentanly MANAGER LIGHTING con't at 100mcg/hr. Levophed at 5 mcg = 18.8 ml/hr. NS TKO x2. Tube feed at 10 ml/hr.
--- NOTE | 2020-12-02 16:09 | NUR ---
Pt mani. Levophed decreased to 4 mcg with SBP. 100 and MAP >65.
--- NOTE | 2020-12-02 17:12 | NUR ---
Status Report given to sister Ellie. Levophed decreased to 3mcg- will monitor. No acute chg's in status. Vent settings unchg'd.SAO2 seemed to drop somewhat when turned to RT. side. 350 ml U/O this shift.
--- NOTE | 2020-12-02 19:30 | NUR ---
REPORT RECEIVED-CARE ASSUMED-GTT RATES AND VITALS NOTED IN FLOWSHEET.
--- NOTE | 2020-12-02 22:19 | NUR ---
2199-PRONE [id number] NOT SETTELING -PEAK PRESSURE ON VENT ALARMING-RT ASSESSED, ET-TBE GOOD-ATIVAN GIVEN.
--- NOTE | 2020-12-02 23:05 | NUR ---
PT CONTINUES TO HAVE PEAK PRESSURES ON VENT ON AND OFF- RT TO ROOM-ASSESSED PT AND VENT-DOSE FENT PUSH GIVEN PER MAR. CONTINUE ASSESSMENTS AND CARE.
--- NOTE | 2020-12-03 06:33 | NUR ---
END OF SHIFT PT REMAINS ON VENT, SEDATED, IN PRONE POSITION. GTTS, RATES, AND VITALS NOTED IN FOWSHEET. 2 BM'S, 500 ML URINE OUTPUT OVERNIGHT. CBG'S Q6-NO COVER REQUIRED. ASSESSMENTS DOCUMENTED IN SURGE ASSESSMENTS. CONTINUE CARE TILL REPORT OFF TO ONCOMING SHIFT RN.
--- NOTE | 2020-12-03 07:37 | NUR ---
Received report from Mel MCKEON. Patient is sedated and intubated. He has 7.5 ET and is 25 cm at teeth with vent settings of 24/400/100/16 and sats 95%. He is proned and RT and been repositioning head left to right. Oral care, cath care and posterior bath given prior to proning. Vazquez draining to gravity yellow urine in moderate amounts. He has OG in place with less than 50 ml residuals with VHP infusing at 10 ml/hr and 30 ml water flushes Q4. No purposeful movent from distal extremityies or head. He is in bilateral soft wrist restraints for line aprotectiopn and patient safety.
--- NOTE | 2020-12-03 10:03 | NUR ---
Dr Crooks by and no changes to vent settings or gtt's. Patient high pressures occassionally and then back down. Levophed remains at 3 mcg/min and systolics low 100's. TF continues with VHP at 10ml/hr. Sats have remained >92%.
[2020-12-03 10:42] LABS: BASOPHILS ABSOLUTE AUTO 0.08 K/mm3 (0.00-0.23); BASOPHILS PERCENT AUTO 1 % (0-2); EOSINOPHILS ABSOLUTE AUTO 0.36 K/mm3 (0.00-0.68); EOSINOPHILS PERCENT AUTO 2 % (0-6); Hematocrit 29.6 % (37.0-53.0); Hemoglobin 9.1 g/dL (13.5-17.5); IMMATURE GRAN ABSOLUTE AUTO 0.25 K/mm3 (0.00-0.10); IMMATURE GRAN PERCENT AUTO 2 % (0-1); LYMPHOCYTES PERCENT AUTO 6 % (21-46); MONOCYTES PERCENT AUTO 8 % (4-13); Mean Corpuscular HGB 31.5 pg (26.0-34.0); Mean Corpuscular HGB Conc 30.7 g/dL (31.5-36.5); Mean Corpuscular Volume 102 fL (80-100); Mean Platelet Volume 10.6 fL (9.1-12.4); NEUTROPHILS ABSOLUTE AUTO 12.92 K/mm3 (1.96-9.15); NEUTROPHILS PERCENT AUTO 81 % (41-73); NRBC ABSOLUTE 0.06 K/mm3 (0.00-0.02); NRBC Auto 0.4 /100 WBC (0.0-0.2); Platelet Count 527 K/mm3 (150-400); RDW Coefficient Variation 15.9 % (11.7-14.2); RDW Standard Deviation 57.7 fL (35.1-46.3); Red Blood Cell Count 2.89 M/mm3 (4.30-5.90); White Blood Cell Count 15.91 K/mm3 (4.00-11.30)
[2020-12-03 11:05] LABS: Anion Gap 5 mmol/L (6-16); Blood Urea Nitrogen 25 mg/dL (8-24); Bun/Creatinine Ratio 39.4 (12.0-20.0); CO2, Blood 32 mmol/L (21-32); Calcium, Blood 8.2 mg/dL (8.5-10.1); Chloride, Blood 97 mmol/L (98-108); Creatinine, Blood 0.64 mg/dL (0.60-1.20); Glomerular Filtration Rate >60 (60-); Glucose, Blood 194 mg/dL (70-99); Potassium, Blood 4.6 mmol/L (3.5-5.5); Sodium, Blood 134 mmol/L (136-145); Triglycerides 250 mg/dL (30-160)
--- NOTE | 2020-12-03 12:10 | NUR ---
Patient un-proned without difficulty. No vent setting changes and sats >90% post proning. Finished bath after turned. No gtt changes. left out of restraints as he has no purposeful movents what so ever.
--- NOTE | 2020-12-03 13:30 | NUR ---
Pateint has been tolerating repositioning and sats remain low 90%'s. Propofol at 60 mcg/kg/min, Levophed 3 mcg/min, Fentanyl 100 mcg/hr.
--- NOTE | 2020-12-03 18:03 | NUR ---
Patient has had increased hypotension and have increased Levophed to 7 mcg/min. Vent settings remains unchanged at 24/400/100/16 and sats >90%. Propofol at 60 mcg/kg/min and Fentanyl at 100mcg/hr and patient has had meme real purp[oseful movements and have take out of restraits today. VHP continues at 10 ml/hr and 30 ml water flushes q4. Low residuals < [address] Crooks and received 500 ml bolus and to place order for vasopressin if needed.
--- NOTE | 2020-12-03 19:23 | NUR ---
REPORT RECEIVED-CARE ASSUMER. GTT'S, RATES, VITALS NOTED IN FLOWSHEET. START SURGE SHIFT ASSESSMENT NOW. CONTINUE CARE.
--- NOTE | 2020-12-04 06:14 | NUR ---
END OF SHIFT NOTE NO CHANGES OVERNIGHT-PT REMIANS VENTED-SEDATED ON PROPOFOL& FENT-PRONED @ 2200- LEVO INFUSING FOR BP SUPPORT, Q4 ORAL CARE AND REPOSITION DONE. GTTS/RATES & VITALS NOTED IN FLOWSHEET. BM X 2. CASTRO WITH DARK JILLIAN URINE OUT. CONTINUE CARE TILL REPORT OFF TO ONCOMING SHIFT RN.
--- NOTE | 2020-12-04 08:20 | NUR ---
ASSUMED CARE: REPORT RECEIVED FROM KIMBERLY Randall RN. ASSUMED CARE OF THIS PT AT APPROX 0700. ON ASSESSMENT, THE PT IS RESTING QUIETLY, SEDATED W/ PROPOFOL & FENTANYL. LS ARE CLEAR IN UPPERS, DIM T/O. VENT SETTINGS: AC/VC 24/400/16/100% W/ O2 SATS > 90%. MONITOR SHOWS SR W/ HR 90s, PT HYPOTENSIVE W/ LEVOPHED INFUSING - SEE FLOWSHEET FOR TITRATION. OGT IN PLACE W/ TUBE FEEDS INFUSING AT GOAL RATE & LOW RESIDUALS. CASTRO PATENT/ DRAINING DARK YELLOW URINE. SKIN CONDITION OVERALL FRAGILE & EDEMATOUS. PERIORBITAL EDEMA & OVERALL FACIAL SWELLING R/T PRONE POSITIONING. Q2H REPOSITIONING, PLAN TO UNPRONE AT 1200. WILL CONTINUE TO MONITOR & UPDATE NEEDED.
[2020-12-04 10:18] LABS: BASOPHILS ABSOLUTE AUTO 0.09 K/mm3 (0.00-0.23); BASOPHILS PERCENT AUTO 1 % (0-2); EOSINOPHILS ABSOLUTE AUTO 0.37 K/mm3 (0.00-0.68); EOSINOPHILS PERCENT AUTO 2 % (0-6); Hemoglobin 8.9 g/dL (13.5-17.5); IMMATURE GRAN ABSOLUTE AUTO 0.37 K/mm3 (0.00-0.10); IMMATURE GRAN PERCENT AUTO 2 % (0-1); LYMPHOCYTES ABSOLUTE AUTO 0.95 K/mm3 (0.84-5.20); LYMPHOCYTES PERCENT AUTO 6 % (21-46); MONOCYTES ABSOLUTE AUTO 1.31 K/mm3 (0.16-1.47); MONOCYTES PERCENT AUTO 8 % (4-13); Mean Corpuscular HGB 31.1 pg (26.0-34.0); Mean Corpuscular HGB Conc 30.7 g/dL (31.5-36.5); Mean Corpuscular Volume 101 fL (80-100); Mean Platelet Volume 10.4 fL (9.1-12.4); NEUTROPHILS ABSOLUTE AUTO 13.93 K/mm3 (1.96-9.15); NEUTROPHILS PERCENT AUTO 82 % (41-73); NRBC ABSOLUTE 0.11 K/mm3 (0.00-0.02); NRBC Auto 0.6 /100 WBC (0.0-0.2); Platelet Count 566 K/mm3 (150-400); RDW Coefficient Variation 16.4 % (11.7-14.2); RDW Standard Deviation 57.9 fL (35.1-46.3); Red Blood Cell Count 2.86 M/mm3 (4.30-5.90); White Blood Cell Count 17.02 K/mm3 (4.00-11.30)
[2020-12-04 10:32] LABS: Anion Gap 4 mmol/L (6-16); Blood Urea Nitrogen 21 mg/dL (8-24); Bun/Creatinine Ratio 31.6 (12.0-20.0); CO2, Blood 34 mmol/L (21-32); Calcium, Blood 8.6 mg/dL (8.5-10.1); Chloride, Blood 97 mmol/L (98-108); Creatinine, Blood 0.66 mg/dL (0.60-1.20); Glomerular Filtration Rate >60 (60-); Glucose, Blood 200 mg/dL (70-99); Sodium, Blood 135 mmol/L (136-145)
--- NOTE | 2020-12-04 11:15 | NUR ---
Juan Daniel DOSS & MIREYA: PROVIDERS AT BEDSIDE THIS AM TO EVAL PT. THEY REQUEST THAT PT's FIO2 BE TITRATED DOWN IF PT TOLERATES. NO OTHER CHANGES AT THIS TIME.
--- NOTE | 2020-12-04 11:28 | NUR ---
Pal Care Note: Discussed current status and results of EEG with Bakari Arnett. Bakari to further discuss plan of care, goals of care and prognosis with providers today in effort to assist family with advanced care planning decisions best for pt.
--- NOTE | 2020-12-04 11:59 | NUR ---
Case update: sequential organ failure assessment score remains relatively stable with an approximately 25% mortality index. Oxygen dependence and vassopressor needs have not changed dramatically. The principal is essentially stationary without observed signs of major decline or progress. His code status is DNR. I conferenced with the exterminator helper termite, and the concensus was that we would postpone a discussion about the de-escelation of care until the end of the week. Whether the principal is trending favorably, unfavorably or or remaining clinically unaltered, will dictacte the course of the discussion with the family at that point. Thank you for this consult. Bakari Arnett ThD
--- NOTE | 2020-12-04 18:52 | NUR ---
SHIFT SUMMARY: NO ACUTE CHANGES SINCE PRIOR UPDATES. PT REMAINS SEDATED W/ PROPOFOL & FENTANYL, RESTING QUIETLY. LS DIM T/O, VENT SETTINGS: AC/VC 24/400/16/90% W/ O2 SATS > 87% ON AVG. MONITOR SHOWS SR-ST W/ HR 80-100s. HYPOTENSIVE W/ LEVOPHED INFUSING AT 6 MCG/MIN. OGT IN PLACE W/ TUBE FEEDS INFUSING AT GOAL RATE, LOW RESIDUALS - SEE I&O. NO BM THIS SHIFT. CASTRO PATENT/ DRAINING DARK YELLOW URINE W/ ADEQUATE OUTPUT, DIURESIS PER EMAR. SKIN CONDITION OVERALL FRAGILE, Q2H REPOSITIONING TO MAINTAIN SKIN INTEGRITY. WILL CONTINUE TO MONITOR & REPORT OFF TO ONCOMING RN.
--- NOTE | 2020-12-04 20:06 | NUR ---
START OF SHIFT-REPORT RECEIVED- CARE ASSUMED-CRITICAL STAFFING GTT'S, RATES AND VITALS NOTED IN FLOWSHEET, SURGE CHART ASSESSMENT DONE. CONTINUE ASSESSMENTS AND CARE.
--- NOTE | 2020-12-04 23:20 | NUR ---
ASSESS PT IN PRONE POSITION ON VENT-PEAK PRESSURES ON VENT- APEARS TO HAVE INCREASED WOB-ST 111 ON MONITOR-ASSESSED [id number] 25 AT [id number] SECREATIONS-POSITIVE COUGH-NO GAG WITH ORAL CARE. ATIVAN 2 MG GIVEN-PT NO LONGER HAVING PEAK PRESSURES- HR 103 ST, CONTINUE ASSESSMENTS AND CARE.
--- NOTE | 2020-12-05 03:53 | NUR ---
ASSESS-NO CHANGES-PT IN PRONE POSITION-VENT -GTTS AND RATES NOTED IN FLOWSHEET-LABS SENT-CONTINUE ASSESSMENTS AND CARE.
--- NOTE | 2020-12-05 08:30 | NUR ---
ASSUMED CARE: REPORT RECEIVED FROM KIMBERLY Randall RN. ASSUMED CARE OF THIS PT AT APPROX 0700. ON ASSESSMENT, THE PT IS SEDATED W/ PROPOFOL & FENTANYL. PUPILS ARE EQUAL, SLUGGISH. WEAK COUGH, NO GAG. LS ARE DIM T/O, VENT SETTINGS: AC/VC 24/400/18/100% W/ O2 SATS > 88% ON AVG. MONITOR SHOWS SR-ST W/ HR 90-100s, HYPOTENSION W/ LEVOPHED DRIP INFUSING - SEE FLOWSHEET FOR TITRATIONS. OGT IN PLACE W/ TUBE FEEDS INFUSING AT GOAL RATE, LOW RESIDUALS. CASTRO PATENT/ DRAINING DARK YELLOW URINE W/ DIURESIS PER EMAR. SKIN CONDITION OVERALL FRAGILE. PT IS CURRENTLY PRONED, PLAN TO UNPRONE AT 1200. Q2H REPOSITIONING TO MAINTAIN SKIN INTEGRITY. WILL CONTINUE TO MONITOR & UPDATE NEEDED.
[2020-12-05 11:15] LABS: PCO2 Arterial 64.2 mmHg (35-45); PO2 Arterial 76.8 mmHg (80-100); pH Blood Arterial 7.36 (7.35-7.45)
[2020-12-05 11:31] LABS: Anion Gap 6 mmol/L (6-16); Blood Urea Nitrogen 21 mg/dL (8-24); Bun/Creatinine Ratio 32.9 (12.0-20.0); CO2, Blood 34 mmol/L (21-32); Calcium, Blood 8.8 mg/dL (8.5-10.1); Chloride, Blood 95 mmol/L (98-108); Creatinine, Blood 0.64 mg/dL (0.60-1.20); Glomerular Filtration Rate >60 (60-); Glucose, Blood 234 mg/dL (70-99); Potassium, Blood 3.8 mmol/L (3.5-5.5); Sodium, Blood 135 mmol/L (136-145)
[2020-12-05 11:31] LABS: Appearance, Urine Clear (Clear); Bilirubin, Urine Neg (Neg); Blood, Urine 1+ (Neg); Color, Urine Yellow (P-Yellow); Glucose Qualitative, Urine Neg (Neg); Ketones, Urine Neg (Neg); Leukocyte Esterase, Urine Neg (Neg); Nitrite, Urine Neg (Neg); Protein, Urine 1+ (Neg); Source, Urine Catheter; Urobilinogen, Urine NORM (Normal)
[2020-12-05 11:34] LABS: BASOPHILS ABSOLUTE AUTO 0.09 K/mm3 (0.00-0.23); BASOPHILS PERCENT AUTO 1 % (0-2); EOSINOPHILS ABSOLUTE AUTO 0.16 K/mm3 (0.00-0.68); EOSINOPHILS PERCENT AUTO 1 % (0-6); Hematocrit 29.6 % (37.0-53.0); IMMATURE GRAN ABSOLUTE AUTO 0.28 K/mm3 (0.00-0.10); IMMATURE GRAN PERCENT AUTO 2 % (0-1); LYMPHOCYTES PERCENT AUTO 5 % (21-46); MONOCYTES PERCENT AUTO 9 % (4-13); Mean Corpuscular HGB 31.3 pg (26.0-34.0); Mean Corpuscular HGB Conc 30.4 g/dL (31.5-36.5); Mean Corpuscular Volume 103 fL (80-100); NEUTROPHILS PERCENT AUTO 83 % (41-73); NRBC ABSOLUTE 0.09 K/mm3 (0.00-0.02); NRBC Auto 0.5 /100 WBC (0.0-0.2); Platelet Count 594 K/mm3 (150-400); RDW Coefficient Variation 16.4 % (11.7-14.2); RDW Standard Deviation 60.7 fL (35.1-46.3); Red Blood Cell Count 2.88 M/mm3 (4.30-5.90); White Blood Cell Count 16.53 K/mm3 (4.00-11.30)
[2020-12-05 11:56] LABS: Squamous Epithelial Cells Mod /hpf (Few)
[2020-12-05 11:57] LABS: Bacteria Few /hpf; Granular Casts 0-2 /lpf (0); Hyaline Casts 0-2 /lpf (0-2)
--- NOTE | 2020-12-05 16:30 | NUR ---
ARTERIAL LINE PLACEMENT: Juan Daniel DOSS & EVANGELIST AT BEDSIDE THIS EVENING TO PLACE ARTERIAL LINE FOR THIS PT R/T PROLONGED PRESSOR USE. LINE PLACED TO PT's LEFT RADIAL ARTERY, SUTURED IN PLACE & TEGADERM CHG DRESSING PLACED. LINE IS ZEROED W/ ADEQUATE BP READING THAT CORRELATES CLOSELY TO LAST NBP MEASUREMENT - SEE VS.
--- NOTE | 2020-12-05 18:14 | NUR ---
SHIFT SUMMARY: NO ACUTE CHANGES SINCE PRIOR UPDATES. PT REMAINS SEDATED W/ PROPOFOL & INTUBATED. THE PT BEGINS TO ALARM FOR HIGH PEAK PRESSURES ON VENTILATOR WHEN THIS RN ATTEMPTS TO TITRATE SEDATION DOWN. LS ARE DIM T/O, VENT SETTINGS: AC/VC 24/400/18/80% W/ O2 SATS > 89% ON AVG. MONITOR SHOWS SR W/ HR 80-90s, LEVOPHED INFUSING FOR HYPOTENSION - SEE FLOWSHEET FOR TITRATION. OGT IN PLACE W/ TUBE FEEDS INFUSING AT GOAL RATE, LOW RESIDUALS. NO BM THIS SHIFT. CASTRO PATENT/ DRAINING DARK YELLOW URINE, DIURESIS PER EMAR. SKIN CONDITION OVERALL FRAGILE, Q2H REPOSITIONING TO MAINTAIN SKIN INTEGRITY. WILL CONTINUE TO MONITOR & REPORT OFF TO ONCOMING RN.
--- NOTE | 2020-12-05 20:56 | NUR ---
ASSUMPTION OF CARE PT REMAINS INTUBATED AT THIS TIME. VENT SETTINGS AC 24/400/18/100%. PT RECEIVING PROPOFOL 65MCG/KG/MIN, AND LEVOPHED 2MCG/MIN. PT UNRESPONSIVE TO STERNAL RUB. PT SLIGHTLY GRIMACES AND GAGS DURING ORAL CARE. OGT IN PLACE INFUSING TUBE FEEDING. CASTRO REMAINS IN PLACE. SEE SHIFT ASSESSMENT.
[2020-12-06 04:43] LABS: BASOPHILS PERCENT AUTO 1 % (0-2); EOSINOPHILS ABSOLUTE AUTO 0.06 K/mm3 (0.00-0.68); EOSINOPHILS PERCENT AUTO 0 % (0-6); Hematocrit 29.8 % (37.0-53.0); IMMATURE GRAN ABSOLUTE AUTO 0.32 K/mm3 (0.00-0.10); IMMATURE GRAN PERCENT AUTO 2 % (0-1); LYMPHOCYTES ABSOLUTE AUTO 0.76 K/mm3 (0.84-5.20); LYMPHOCYTES PERCENT AUTO 5 % (21-46); MONOCYTES ABSOLUTE AUTO 1.34 K/mm3 (0.16-1.47); MONOCYTES PERCENT AUTO 9 % (4-13); Mean Corpuscular HGB 30.5 pg (26.0-34.0); Mean Corpuscular HGB Conc 30.2 g/dL (31.5-36.5); Mean Corpuscular Volume 101 fL (80-100); Mean Platelet Volume 10.8 fL (9.1-12.4); NEUTROPHILS ABSOLUTE AUTO 13.05 K/mm3 (1.96-9.15); NEUTROPHILS PERCENT AUTO 84 % (41-73); NRBC ABSOLUTE 0.07 K/mm3 (0.00-0.02); NRBC Auto 0.4 /100 WBC (0.0-0.2); Platelet Count 585 K/mm3 (150-400); RDW Coefficient Variation 16.6 % (11.7-14.2); Red Blood Cell Count 2.95 M/mm3 (4.30-5.90); White Blood Cell Count 15.63 K/mm3 (4.00-11.30)
[2020-12-06 04:51] LABS: Anion Gap 3 mmol/L (6-16); Blood Urea Nitrogen 25 mg/dL (8-24); Bun/Creatinine Ratio 38.3 (12.0-20.0); CO2, Blood 37 mmol/L (21-32); Calcium, Blood 8.6 mg/dL (8.5-10.1); Chloride, Blood 94 mmol/L (98-108); Creatinine, Blood 0.65 mg/dL (0.60-1.20); Glomerular Filtration Rate >60 (60-); Glucose, Blood 237 mg/dL (70-99); Potassium, Blood 3.9 mmol/L (3.5-5.5); Sodium, Blood 134 mmol/L (136-145)
--- NOTE | 2020-12-06 05:24 | NUR ---
SHIFT SUMMARY PT REMAINS INTUBATED, VENT SETTINGS 24/400/18/95%. PT PRONED LAST NIGHT AT 2300, TOLERATING WELL. PT RECEIVING PROPOFOL 65MCG/KG/MIN, LEVOPHED 2MCG/MIN, AND FENTANYL 100MCG/HR. TUBE FEED CONTINUES TO INFUSE AT GOAL RATE. CASTRO REMAINS IN PLACE DRAINING JILLIAN URINE. SHIFT OUTPUT OF 700ML. PT'S FACE IS EDEMATOUS FROM PRONING POSITION. WILL REPORT TO ONCOMING RN.
--- NOTE | 2020-12-06 09:08 | NUR ---
ASSUMED CARE REPORT FROM NILAY MCKEON AT 0700. PT INTUBATED, SEDATED AND PRONED. VENT SETTINGS AC/VC 24/400/18/95%. LUNGS COARSE, WORSE ON RIGHT. SMALL YELLOW THIN SECRETIONS FROM ETT. NO COUGH/GAG/SWALLOW REFLEX. OCCASIONAL HIGH PEAK PRESSURES 40'S. PROPOFOL AND FENTANYL GTT FOR SEDATION. SIGNIFICANT SCLERA AND FACIAL EDEMA. REPOSITIONED HEAD. PT UNRESPONSIVE TO PAINFUL STIMULI. ART LINE TO LEFT RADIAL, ZERO'D AND FLUSHED. LEVO GTT FOR MAP>65. TUBE FEEDS AT GOAL, 10 ML/HR c 30 ML FLUSHES q4 HR VIA OGT. ABD ROUND, SOFT, HYPOACTIVE BT. FOLEYH PATENT, DRAINING JILLIAN URINE TO GRAVITY. ANASCARCIA. NSR, RATE 90'S. WILL CONTINUE TO MONITOR.
--- NOTE | 2020-12-06 16:38 | NUR ---
SEDATION VACATION GRADUALLY REDUCED SEDATION TO PROPOFOL 30 MCG/KG/MIN AND FENTANYL 50 MCG/HR. PT c OCCASIONAL DOUBLE STACKING ON VENT. IRREGULAR BREATHING PATTERN, HIGH PEAK PRESSURES, 40'S. O2 SATS DECREASED TO 87% ON 90% FIO2. COUGH REFLEX PRESENT. NO RESPONSE TO PAINFUL STIMULI, DOES NOT FOLLOW DIRECTIONS. INCREASED PROPOFOL TO 45 MCG/KG/MIN, FENTANYL REMAINED AT 50 MCG/HR FOR VENT COMPLIANCE.
--- NOTE | 2020-12-06 17:27 | NUR ---
SHIFT SUMMARY PT REMAINS INTUBATED AND SEDATED. VENT SETTINGS AC/VC 24/400/18/90%. LUNGS DIM IN BASES. SCANT THIN YELLOW SECRETIONS THROUGH ETT. PROPOFOL AND FENTANYL GTT FOR PAIN AND SEDATION. SEE PREVIOUS NOTE FOR SEDATION VACATION AND VENT COMPLIANCE. PT SUPINED AT 1200, PLAN TO PRONE AT 2000. FACIAL AND SIGNIFICANT SCLERA EDEMA NOTED. EYE CARE PERFORMED. LEFT EYE MORE SWOLLEN AND RED THAN RIGHT. LEVO GTT FOR MAP>65, TITRATED OFF FOR 1/2 OF SHIFT, RESTARTED AFTER MAP<65. ART LINE TO LEFT RADIAL, DRESSING C/D/I. GOOD WAVEFORM. NSR 80'S. ABD ROUND, SOFT, HYPOACTIVE BT. TUBE FEEDS AT GOAL c MINIMAL RESIDUALS. CASTRO PATENT, DRAINED 725 ML JILLIAN URINE c SEDIMENT TO GRAVITY. PICC TO RUE, POWERGLIDE TO LUE, DRESSINGS CHANGED THIS SHIFT. WILL CONTINUE TO MONITOR UNTIL REPORT TO ONCOMING NURSE.
--- NOTE | 2020-12-06 19:35 | NUR ---
REPORT RECEIVED-CARE ASSUMED- GTTS/RATES/VITALS NOTED IN FLOWSHEET-SURGE SHIFT ASSESSMENT.
[2020-12-07 03:33] LABS: BASOPHILS ABSOLUTE AUTO 0.07 K/mm3 (0.00-0.23); BASOPHILS PERCENT AUTO 0 % (0-2); EOSINOPHILS ABSOLUTE AUTO 0.03 K/mm3 (0.00-0.68); EOSINOPHILS PERCENT AUTO 0 % (0-6); Hematocrit 30.1 % (37.0-53.0); Hemoglobin 9.3 g/dL (13.5-17.5); IMMATURE GRAN ABSOLUTE AUTO 0.33 K/mm3 (0.00-0.10); IMMATURE GRAN PERCENT AUTO 2 % (0-1); LYMPHOCYTES ABSOLUTE AUTO 0.99 K/mm3 (0.84-5.20); LYMPHOCYTES PERCENT AUTO 6 % (21-46); MONOCYTES ABSOLUTE AUTO 1.41 K/mm3 (0.16-1.47); MONOCYTES PERCENT AUTO 8 % (4-13); Mean Corpuscular HGB 30.9 pg (26.0-34.0); Mean Corpuscular HGB Conc 30.9 g/dL (31.5-36.5); Mean Corpuscular Volume 100 fL (80-100); Mean Platelet Volume 10.5 fL (9.1-12.4); NEUTROPHILS ABSOLUTE AUTO 13.88 K/mm3 (1.96-9.15); NEUTROPHILS PERCENT AUTO 83 % (41-73); NRBC ABSOLUTE 0.07 K/mm3 (0.00-0.02); NRBC Auto 0.4 /100 WBC (0.0-0.2); Platelet Count 622 K/mm3 (150-400); RDW Coefficient Variation 16.8 % (11.7-14.2); RDW Standard Deviation 58.3 fL (35.1-46.3); Red Blood Cell Count 3.01 M/mm3 (4.30-5.90); White Blood Cell Count 16.71 K/mm3 (4.00-11.30)
[2020-12-07 03:51] LABS: Alanine Aminotransfer (ALT/SGP 35 U/L (12-78); Albumin, Blood 1.3 g/dL (3.4-5.0); Albumin/Globulin Ratio 0.3 (0.8-1.8); Alk Phos 93 U/L (50-136); Anion Gap 3 mmol/L (6-16); Aspartate Aminotrans (AST/SGOT 44 U/L (12-37); Bilirubin, Total 0.3 mg/dL (0.1-1.0); Blood Urea Nitrogen 24 mg/dL (8-24); Bun/Creatinine Ratio 36.8 (12.0-20.0); CO2, Blood 37 mmol/L (21-32); Calcium, Blood 8.6 mg/dL (8.5-10.1); Chloride, Blood 94 mmol/L (98-108); Creatinine, Blood 0.65 mg/dL (0.60-1.20); Globulin, Blood 4.9 g/dL (2.2-4.0); Glomerular Filtration Rate >60 (60-); Glucose, Blood 209 mg/dL (70-99); Magnesium, Blood 1.6 mg/dL (1.6-2.4); Potassium, Blood 3.4 mmol/L (3.5-5.5); Sodium, Blood 134 mmol/L (136-145); Total Protein, Blood 6.2 g/dL (6.4-8.2)
--- NOTE | 2020-12-07 05:53 | NUR ---
END OF SHIFT NOTE PT PRONED AT 2300-REMAINED PRONE [id number]/C V/C RATE24/TV400/PEEP 18/80%-SXN: SCANT AMT OF WILDE SECREATIONS WITH POSITIVE COUGH, MODERATE AMTS OF CREAMY ORAL SECREATIONS-NO GAG. PT REMAINS WITH NO PURPOSFUL MVT-NOT IN RESTRAINTS BUT DID REQUIRE A SLIGHT INCREASE IN PROPOFOL FOR BREATH STACKING ON VENT. PROPOFOL @ 50/FENT @ 50/ LEVO @ 3/ NS @ TKO. CASTRO DRAINING-1100 ML OUT OVERNIGHT. CBG Q6 218 & 208, COVERED PER MAR. CONTINUE ASSESSMENTS AND CARE TILL REPORT OFF TO ONCOMING SHIFT.
--- NOTE | 2020-12-07 07:56 | NUR ---
ASSUMED CARE REPORT FROM KIMBERLY MCKEON. PT INTUBATED, SEDATED AND PRONED. VENT SETTINGS AC/VC 24/400/18/80%. O2 SATS LOW 90'S. LUNGS CLEAR THROUGHOUT. SCANT SECRETIONS THROUGH ETT. COUGH REFLEX PRESENT. DOES NOT RESPOND TO PAINFUL STIMULI. PROPOFOL AND FENTANYL GTT FOR PAIN AND SEDATION. FACIAL AND SCLERA EDEMA NOTED. EYE CARE PERFORMED, GEL PAD PLACED AND HEAD TURNED. TUBE FEEDS VIA OGT AT GOAL, 10 ML/HR c 30 ML FLUSHES q4 HR. NO RESIDUALS THIS AM. ABD SOFT, ROUND, BT X 4. CASTRO PATENT, DRAINING YELLOW URINE c SEDIMENT TO GRAVITY. CONTINUING TO DIURESE. NSR, RATE 90'S. LEVO GTT FOR MAP>65. ANASCARCIA, 2+ EDEMA TO BLE AND HANDS. KCL INFUSING. PICC TO RUE, POWERGLIDE TO LUE, DRESSINGS C/D/I. AFEBRILE. WILL CONTINUE TO MONITOR. INFUSING.
[2020-12-07 09:46] LABS: PCO2 Arterial 57 mmHg (35-45); PO2 Arterial 51 mmHg (80-100); pH Blood Arterial 7.44 (7.35-7.45)
--- NOTE | 2020-12-07 13:15 | NUR ---
Ethics Update: Conversation facilitated with the principals default proxy to discuss [place]'s lack of ostensible medical progress. The patient continues to be significanly O2 dependent, largely unresponsive to noxious stimuli, and relatively stationary in terms of overall improvement. I gently but candidly explained to Ellie, that under the present curcumstances, it appears clinically improbable that [place] will experience a full, uncomplicated, and meaningful recovery. We briefly discussed that due to his medical fragility, the principal is not currently a good candidate for a tracheostomy or the ensuing rehabilitation process. In light of the aforementioned factors, I shared that the clinical team has reached the consensus that a de-escalation care with a hospice election, might be the most responsible, dignified and compassionate path going forward. Ellie was agreeable. I will be coordinating Facetime opportunities for she and her family tomorrow so that they can express final affections, sentiments and goodbyes. Thank you for this consult. Bakari Arnett ThD
--- NOTE | 2020-12-07 17:22 | NUR ---
SHIFT SUMMARY PT REMAINS INTUBATED AND SEDATED. VENT SETTINGS AC/VC 24/400/18/85%. LUNGS CLEAR. SCANT SECRETIONS VIA ETT. COUGH REFLEX, CORNEAL REFLEX PRESENT. NO SWALLOW, GAG. NO RESPONSE TO PAINFUL STIMULI. O2 SATS MID 90'S. DESAT c COUGHING. PROPOFOL AND FENTANYL GTT FOR SEDATION. DECREASED THIS SHIFT TO ASSESS NEURO STATUS, O2 SATS DECREASED c INCREASED COUGH. LEVO ON STANDBY AT THIS TIME, MAP>65. ART LINE TO RIGHT RADIAL, DRESSING C/D/I, GOOD WAVEFORM. SR, RATE 70'S. TUBE FEEDS INCREASED TO 30 ML/HR c 30 ML FLUSHES q4 HR. NO RESIDUALS THIS AFTERNOON. CASTRO PATENT, DRAINED 1300 ML YELLOW URINE c SEDIMENT TO GRAVITY. PT TO BE LEFT SUPINE OVERNIGHT. PER EVERTON Cavazos, PLAN FOR FAMILY ZOOM MEETING c SISTER AND PT AT 0700 TOMORROW AM c POSSIBLE TRANSITION TO COMFORT CARE. PT REMAINS DNR c FULL TREATMENT AT THIS TIME. WILL CONTINUE TO MONITOR UNTIL REPORT TO ONCOMING NURSE.
--- NOTE | 2020-12-07 22:34 | NUR ---
SHIFT ASSESSMENT ASSUMED CARE OF PT @ 1900. REPORT RECEIVED FROM LINDA MILLIGAN. PT INTUBATED AND SEDATED. VENT SETTINGS-AC: 24/400/85%/ PEEP-18 c O2 SATS >88%. DESATS QUICKLY WITH COUGHING/ SUCTION. SCANT SECRETIONS WITH SUCTION. LS CLEAR, DIMINISHED. COUGH REFLEX. NO RESPONSE TO PAINFUL STIMULI. NO SWALLOW OR GAG. PROPOFOL & FENTANYL GTT FOR SEDATION. TF @ GOAL, NO RESIDUALS. ART LINE TO L RADIAL ARTERY, GOOD WAVEFORM, DRESSING C/D/I, MAP >60, LEVOPHED ON SB. CASTRO CATH PATENT, DRAINING YELLOW URINE. GENERALIZED EDEMA. PT TO REMAIN SUPINE TONIGHT. WILL CONTINUE TO MONITOR.
[2020-12-08 03:24] LABS: BASOPHILS ABSOLUTE AUTO 0.07 K/mm3 (0.00-0.23); BASOPHILS PERCENT AUTO 1 % (0-2); EOSINOPHILS ABSOLUTE AUTO 0.06 K/mm3 (0.00-0.68); EOSINOPHILS PERCENT AUTO 0 % (0-6); Hematocrit 29.7 % (37.0-53.0); Hemoglobin 9.2 g/dL (13.5-17.5); IMMATURE GRAN ABSOLUTE AUTO 0.27 K/mm3 (0.00-0.10); IMMATURE GRAN PERCENT AUTO 2 % (0-1); LYMPHOCYTES ABSOLUTE AUTO 0.96 K/mm3 (0.84-5.20); LYMPHOCYTES PERCENT AUTO 7 % (21-46); MONOCYTES ABSOLUTE AUTO 1.14 K/mm3 (0.16-1.47); MONOCYTES PERCENT AUTO 8 % (4-13); Mean Corpuscular Volume 100 fL (80-100); Mean Platelet Volume 10.5 fL (9.1-12.4); NEUTROPHILS ABSOLUTE AUTO 11.22 K/mm3 (1.96-9.15); NEUTROPHILS PERCENT AUTO 82 % (41-73); NRBC ABSOLUTE 0.05 K/mm3 (0.00-0.02); NRBC Auto 0.4 /100 WBC (0.0-0.2); Platelet Count 627 K/mm3 (150-400); RDW Standard Deviation 60.5 fL (35.1-46.3); Red Blood Cell Count 2.97 M/mm3 (4.30-5.90); White Blood Cell Count 13.72 K/mm3 (4.00-11.30)
[2020-12-08 03:40] LABS: Alanine Aminotransfer (ALT/SGP 31 U/L (12-78); Albumin, Blood 1.1 g/dL (3.4-5.0); Albumin/Globulin Ratio 0.2 (0.8-1.8); Alk Phos 87 U/L (50-136); Anion Gap 5 mmol/L (6-16); Aspartate Aminotrans (AST/SGOT 43 U/L (12-37); Bilirubin, Total 0.3 mg/dL (0.1-1.0); Blood Urea Nitrogen 26 mg/dL (8-24); CO2, Blood 37 mmol/L (21-32); Calcium, Blood 8.5 mg/dL (8.5-10.1); Chloride, Blood 92 mmol/L (98-108); Creatinine, Blood 0.61 mg/dL (0.60-1.20); Glomerular Filtration Rate >60 (60-); Glucose, Blood 210 mg/dL (70-99); Magnesium, Blood 1.6 mg/dL (1.6-2.4); Phosphorus, Blood 2.4 mg/dL (2.5-4.9); Potassium, Blood 3.2 mmol/L (3.5-5.5); Sodium, Blood 134 mmol/L (136-145); Total Protein, Blood 6.1 g/dL (6.4-8.2)
--- NOTE | 2020-12-08 06:23 | NUR ---
SHIFT SUMMARY PT REMAINS INTUBATED, SEDATED, AND SUPINE. PROPOFOL GTT @ 50MCG/KG/MIN, FENTANYL COMMUNICATIONS LEAD @ 50MCG/HR, AND LEVOPHED @ 3MCG/MIN. NO CHANGES TO PTS NEURO STATUS. VENT SETTINGS REMAIN THE SAME. SMALL AMNT OF THICK SECRETIONS SUCTIONED FROM ET TUBE. TF CONTINUES @ GOAL, NO RESIDUALS. ONE SMALL BM DURING THE NIGHT. CASTRO CATH DRAINING YELLOW URINE WITH SEDIMENT. L RADIAL ART LINE ZEROED, GOOD WAVEFORM, NO BLEEDING OR BRUISING AROUND INSERTION SITE. KPHOS INFUSING. NO ACUTE CHANGES IN PT CONDITION DURING THE NIGHT. AWAITING MEETING WITH FAMILY THIS MORNING.
--- NOTE | 2020-12-08 09:18 | NUR ---
[place] of Care: Care assumed at 0700hr. Patient intubated and sedated with propofol gtt at 50mcg/kg/min, and fentanyl at 50mcg/hr. Patient shows slight facial grimace to noxious stimuli, otherwise unresponsive and not following any commands. Vent to AC 24/400/18/85, spO2-92-94%, tolerating vent without difficulty. BP stable with systolic's BP's in the low 100's and MAP's in the 70's (per lt radial art line). Levophed gtt at 3mcg/min. PICC to PACHECO patent and intact, infusing without difficulty. Powerglide to DAVID patent and intact. Vazquez cath patent and intact, draining clear dark yellow urine. TF per PG at goal, 0ml residual this morning, no s/s of GI intolerance. Per NOC shift RN, plan for Bakari from ethics to perform face-time call with family this morning, then transition to comfort measures. This related to prolonged intubation without improvement in patient's condition. [employer]abe spoke with Bakari this morning, received plan to arrive at patient's room at 1100hr, to assist with face-time calls to family. Will continue to monitor.
--- NOTE | 2020-12-08 12:31 | NUR ---
Case conf with , RN, Bakari Arnett re: plan for today with video call with family and plan for comfort care. I will place orders received verbally once family gives ok/confirmation. RN to update when that occurs.
--- NOTE | 2020-12-08 17:06 | NUR ---
Ethics Update: Comprehensive discussion facilitated with immediate and extended members of the principals family using video, teleconferencing and live interactions. I provided the medical and ethical rationale for a discontinuation of care, coordinated final goodbyes and scheduled the extubation for Friday at 10am. Peter son, accompanied by his significant other, will be present for the transition to hospice. The family wanted me to extend thier gratitude and praise to the entire medical staff for the incredilbe dedication, and committment they showed to [place]. They deeply respect and appreciate the courageous efforts that were made to try and save his life. Thank you for this consult. Bakari Arnett ThD
--- NOTE | 2020-12-08 17:54 | NUR ---
Shift Summary: No significant changes throughout shift. No changes to vent settings, continue to tolerate current AC mode without difficulty, spO2-92-96%. No changes in neuro status. Continues to facial grimace to noxious stimuli, otherwise not following any commands. Levophed at 2-3mcg/min throughout shift, BP stable. PICC line remains patent and intact, infusing without difficulty. Vazquez cath remains patent and intact, draining dark yellow clear urine. See Bakari Arnett note r/t extensive conversations he had with several family members this shift. Conversations r/t plan of care and transitioning to comfort measures. Bakari notified this RN that plan in place to transition to comfort measures this Friday at 1000hr. Patient appears calm and comfortable. Will continue to monitor until report to NOC shift RN.
--- NOTE | 2020-12-08 19:30 | NUR ---
ASSUMING PT CARE: PT INTUBATED & SEDATED. VENT: AC 24/400, 18/85%. GTTs: PROPOFOL 50mcg/kg/min, FENTANYL 50mcg/hr, LEVOPHED 3mcg/min. NO RESPONSE TO VERBAL OR TACTILE STIMULI. ARTERIAL MAPs >70. SEE SHIFT ASSESSMENT FOR FULL ASSESSMENT. NO ORDERS TO PRONE TONIGHT. FAMILY HAS DISCUSSED MAKING THE PT COMFORT CARE THIS FRIDAY. WILL CONTINUE TO MONITOR & REPORT APPROPRIATE.
--- NOTE | 2020-12-09 | NUR ---
UPDATE: SEDATION VACATION. PROPOFOL TITRATED OFF FOR APPROX 15 min, PT OPENED EYES BUT DID NOT TRACK ABOUT THE ROOM, UNABLE TO FOLLOW COMMANDS, NO GAG, SWALLOW W/ ORAL CARE, +COUGH W/ POSITION CHANGE. NO INTENTIONAL MOVEMENT. VERY FAINT CORNEAL REFLEX W/ EYELASH STIMULATION & EYE CARE.
[2020-12-09 03:43] LABS: BASOPHILS ABSOLUTE AUTO 0.09 K/mm3 (0.00-0.23); BASOPHILS PERCENT AUTO 1 % (0-2); EOSINOPHILS ABSOLUTE AUTO 0.04 K/mm3 (0.00-0.68); EOSINOPHILS PERCENT AUTO 0 % (0-6); Hematocrit 32.3 % (37.0-53.0); Hemoglobin 9.8 g/dL (13.5-17.5); IMMATURE GRAN PERCENT AUTO 2 % (0-1); LYMPHOCYTES ABSOLUTE AUTO 0.88 K/mm3 (0.84-5.20); LYMPHOCYTES PERCENT AUTO 7 % (21-46); MONOCYTES ABSOLUTE AUTO 1.17 K/mm3 (0.16-1.47); MONOCYTES PERCENT AUTO 9 % (4-13); Mean Corpuscular HGB 30.8 pg (26.0-34.0); Mean Corpuscular HGB Conc 30.3 g/dL (31.5-36.5); Mean Corpuscular Volume 102 fL (80-100); Mean Platelet Volume 10.6 fL (9.1-12.4); NEUTROPHILS PERCENT AUTO 82 % (41-73); NRBC ABSOLUTE 0.03 K/mm3 (0.00-0.02); NRBC Auto 0.2 /100 WBC (0.0-0.2); Platelet Count 670 K/mm3 (150-400); RDW Coefficient Variation 17.2 % (11.7-14.2); Red Blood Cell Count 3.18 M/mm3 (4.30-5.90); White Blood Cell Count 13.38 K/mm3 (4.00-11.30)
[2020-12-09 04:02] LABS: Anion Gap 4 mmol/L (6-16); Blood Urea Nitrogen 23 mg/dL (8-24); Bun/Creatinine Ratio 35.1 (12.0-20.0); CO2, Blood 39 mmol/L (21-32); Calcium, Blood 8.3 mg/dL (8.5-10.1); Chloride, Blood 93 mmol/L (98-108); Creatinine, Blood 0.66 mg/dL (0.60-1.20); Glomerular Filtration Rate >60 (60-); Glucose, Blood 250 mg/dL (70-99); Potassium, Blood 3.2 mmol/L (3.5-5.5); Sodium, Blood 136 mmol/L (136-145)
--- NOTE | 2020-12-09 05:55 | NUR ---
SHIFT SUMMARY: PT REMAINS INTUBATED & SEDATED. VENT: AC 24/400, 18/95%. GTTs: PROPOFOL 50mcg/kg/min, FENTANYL 50mcg/hr, LEVOPHED 2mcg/min. UNABLE TO FOLLOW COMMANDS. OPENS EYES W/ SEDATION VACATION. NO RESPONSE TO NOXIOUS STIMULI. OCCASSIONAL COUGH & GAG W/ ORAL CARE. DESATS TO THE MID 80s W/ STIMULATION, HOWEVER PT RECOVERS WELL & QUICKLY. ARTERIAL MAPs >65. NO BM THIS SHIFT. WILL CONTINUE TO MONITOR UNTIL REPORT OFF TO ONCOMING RN.
--- NOTE | 2020-12-09 09:13 | NUR ---
CARE OF PT ASSUMED AT 0700. PT SEDATED ON PROPOFOL AT 50MCG, FENT AT 50MCG/HR FOR SHABBIR OF MECH VENT. PROPOFOL PLACED ON STANDBY TO ASSESS NEURO FUNCTION. WITHIN 5MIN PT'S EYES OPEN BUT DO NOT TRACK. PROPOFOL LEFT ON STANDBY FOR 30MIN. NO MOVEMENT TO LIMBS NOTED. ABSENT GAG AND SWALLOW. PT DOES COUGH. PT CONSTANDLY HAD HIGH PEAK PRESSURES AT 50 WHEN PROPOFOL PLACED ON STANBY. MOD AMT OF THICK YELLOW SPUTUM SX'D FROM ETT. PROPOFOL RESUMED AT 30MCG TO HELP W HIGH PEAK PRESSURES. PT BREATHS OVER VENT. LEVOPHED AT 2MCG THIS AM, PLACED ON STANDBY. ART LINE SBP READS 130'S. R ARM BP CORRELATES. PT TEMP 100.O. PT SHABBIR TUBE FEEDS, RESIDUAL AT 0. SATS >90% ON ACVC 24 400/60 90% PEEP 18.
--- NOTE | 2020-12-09 09:30 | NUR ---
DR DOSS BY TO SEE PT, FULL UPDATE GIVEN
--- NOTE | 2020-12-09 10:43 | NUR ---
ISTRATE IN TO SEE PT, FULL UPDATE GIVEN.
--- NOTE | 2020-12-09 12:03 | NUR ---
PT SATS MID 80'S, RT AT BEDSIDE, AIRLEAK TO ETT RESOLVED BY RT, FIO2 INCREASED TO 100%.
--- NOTE | 2020-12-09 16:43 | NUR ---
PROPOFOL INCREASED BACK UP TO 50MCG, PT W FREQUENT HIGH PEAK PRESSURE ALARMS OF 50. EYES OPEN SPONT AT TIMES, DOES NOT TRACK, NO MOVEMENT NOTED TO EXTREMITIES. LEVOPHED REMAINS OFF W MAPS >65. KPHOS INFUSION COMPLETE.
--- NOTE | 2020-12-09 17:23 | NUR ---
Case conference with RN and review of EMR. Noted plans for w/d of care with family visit tomorrow am.
[2020-12-10 04:13] LABS: BASOPHILS ABSOLUTE AUTO 0.08 K/mm3 (0.00-0.23); BASOPHILS PERCENT AUTO 1 % (0-2); EOSINOPHILS ABSOLUTE AUTO 0.01 K/mm3 (0.00-0.68); EOSINOPHILS PERCENT AUTO 0 % (0-6); Hematocrit 31.2 % (37.0-53.0); Hemoglobin 9.5 g/dL (13.5-17.5); IMMATURE GRAN ABSOLUTE AUTO 0.21 K/mm3 (0.00-0.10); IMMATURE GRAN PERCENT AUTO 2 % (0-1); LYMPHOCYTES ABSOLUTE AUTO 0.76 K/mm3 (0.84-5.20); LYMPHOCYTES PERCENT AUTO 6 % (21-46); MONOCYTES ABSOLUTE AUTO 1.15 K/mm3 (0.16-1.47); MONOCYTES PERCENT AUTO 8 % (4-13); Mean Corpuscular HGB 30.7 pg (26.0-34.0); Mean Corpuscular HGB Conc 30.4 g/dL (31.5-36.5); Mean Corpuscular Volume 101 fL (80-100); Mean Platelet Volume 10.4 fL (9.1-12.4); NEUTROPHILS ABSOLUTE AUTO 11.53 K/mm3 (1.96-9.15); NEUTROPHILS PERCENT AUTO 84 % (41-73); Platelet Count 694 K/mm3 (150-400); RDW Coefficient Variation 17.2 % (11.7-14.2); RDW Standard Deviation 62.4 fL (35.1-46.3); Red Blood Cell Count 3.09 M/mm3 (4.30-5.90); White Blood Cell Count 13.74 K/mm3 (4.00-11.30)
[2020-12-10 04:26] LABS: Alanine Aminotransfer (ALT/SGP 28 U/L (12-78); Albumin, Blood 1.1 g/dL (3.4-5.0); Albumin/Globulin Ratio 0.2 (0.8-1.8); Alk Phos 88 U/L (50-136); Anion Gap 3 mmol/L (6-16); Aspartate Aminotrans (AST/SGOT 39 U/L (12-37); Bilirubin, Direct 0.1 mg/dL (0.0-0.3); Bilirubin, Indirect 0.2 mg/dL (0.1-0.7); Bilirubin, Total 0.3 mg/dL (0.1-1.0); Blood Urea Nitrogen 22 mg/dL (8-24); Bun/Creatinine Ratio 38.3 (12.0-20.0); CO2, Blood 40 mmol/L (21-32); Calcium, Blood 8.5 mg/dL (8.5-10.1); Chloride, Blood 91 mmol/L (98-108); Creatinine, Blood 0.58 mg/dL (0.60-1.20); Glomerular Filtration Rate >60 (60-); Glucose, Blood 292 mg/dL (70-99); Magnesium, Blood 1.8 mg/dL (1.6-2.4); Phosphorus, Blood 3.6 mg/dL (2.5-4.9); Potassium, Blood 3.5 mmol/L (3.5-5.5); Sodium, Blood 134 mmol/L (136-145); Total Protein, Blood 6.1 g/dL (6.4-8.2)
--- NOTE | 2020-12-10 06:20 | NUR ---
SHIFT SUMMARY PT REMAINS INTUBATED AND SEDATED. NO CHANGES TO PTS NEURO STATUS. PROPOFOL TITRATED DURING THE NIGHT DUE TO BREATH STACKING. 2MG ATIVAN GIVEN WELL. FENTANYL HYDRAULICS ENGINEER RATE INCREASED TO 100MCG/HR PER MAY. PT TOLERATING THE VENTILATOR AT THIS TIME. NO CHANGES TO VENT SETTINGS. ABP MAP >60 T/O THE NIGHT. PT REMAINS AFEBRILE. CASTRO CATH DRAINING YELLOW URINE WITH SEDIMENT. ONE BM THIS SHIFT. NO ACUTE CHANGES IN PT CONDITION. REPORT TO ONCOMING NURSE.
--- NOTE | 2020-12-10 09:13 | NUR ---
CARE ASSUMED OF PT AT 0700. PT SEDATED ON PROPOFOL AT 50MCG, FENT AT 100MCG/HR FOR SHABBIR OF MECH VENT. PT IS UNRESTRAINED AND MINIMALLY RESPONSIVE. OCC BREATHS OVER VENT. ABSENT GAG, SWALLOW. OCC WEAK COUGH. NO MOVEMNT OF EXTREMITIES, DOES NOT RESPOND TO PAIN. VENT: AC/VC 24 400/60 100% 18. PT IN SINUS TACH, BP STABLE, AFEBRILE. PT MAY BE TRANSITIONED TO COMFORT CARE PER PALLIATIVE CARE.
--- NOTE | 2020-12-10 09:50 | NUR ---
FAMILY AT BEDSIDE. [facility]ERT[facility] PACHECO AT BEDSIDE FACILITATING ZOOM WITH FAMILY PRIOR TO PLACING PT ON COMFORT CARE AND EXTUBATING PATIENT. DR LIANG CALLED AND NOTIFIED. COMFORT CARE ORDERS PLACED PER DR LIANG.
--- NOTE | 2020-12-10 09:55 | NUR ---
Case conferenced with Bakari Arnett and bedside RN, beverley Colmenares: comfort care and plan to remove life support as planned at 10 am. Comfort care plan of care and medications discussed. I will remain available if needed for support. Bakari Arnett to be present with family. Two family members coming in to be with pt prior and after extubation.
--- NOTE | 2020-12-10 10:14 | NUR ---
PT EXTUBATED AT 1013. FAMILY AND EVERTON PACHECO AT BEDSIDE. PT MEDICATED W MS AND ATIVAN. PROPOFOL DC'D PRIOR TO EXTUBATION.
--- NOTE | 2020-12-10 10:29 | NUR ---
[facility]A AT AT 1029. TIME OF 1031.
--- NOTE | 2020-12-10 10:42 | NUR ---
PT'S SON TOOK PT'S BELONGINGS WITH HIM, 3 BAGS. PT TO GO TO [place]. DR DOSS AND DR LIANG NOTIFIED OF PT'S TOD.
--- NOTE | 2020-12-10 11:10 | NUR ---
[place] was extubated and appeared overall comfortable. He declined somewhat peacefully and non-evenfully over an interval of approximately 15 minutes. He was well supported by family, RT, myself and Nursing. I facilitated a live facetime event for his relatives who were geographically prohibited from being physically present. They were well engaged and grateful. They expressed final senitments and words of reassurance and hope.
--- NOTE | 2020-12-10 11:14 | NUR ---
[facility] ANSWERING SERVICE NOTIFIED
== END 2020-12-10 12:01 | DRG 207 ==
LOC: ER 17:19 → ERHOLD 21:26 → PCU 21:26
PROVIDERS: Emergency Medicine; Family Medicine; Internal Medicine; Internal Medicine Cardiovascular Disease; Internal Medicine Critical Care Medicine; Student in an Organized Health Care Education/Training Program; ADMIT Internal Medicine
PROC: 3E0333Z Introduction of Anti-inflammatory into Peripheral Vein, Percutaneous Approach (ICD-10-PCS; 2020-11-07)
PROC: XW033E5 Introduction of Remdesivir Anti-infective into Peripheral Vein, Percutaneous Approach, New Technology Group 5 (ICD-10-PCS; 2020-11-07)
PROC: 5A0945A Assistance with Respiratory Ventilation, 24-96 Consecutive Hours, High Flow/Velocity Cannula (ICD-10-PCS; 2020-11-07)
PROC: 5A09457 Assistance with Respiratory Ventilation, 24-96 Consecutive Hours, Continuous Positive Airway Pressure (ICD-10-PCS; 2020-11-13)
PROC: 0BH18EZ Insertion of Endotracheal Airway into Trachea, Via Natural or Artificial Opening Endoscopic (ICD-10-PCS; principal; 2020-11-19)
PROC: 5A1955Z Respiratory Ventilation, Greater than 96 Consecutive Hours (ICD-10-PCS; 2020-11-19)
PROC: 3E033XZ Introduction of Vasopressor into Peripheral Vein, Percutaneous Approach (ICD-10-PCS; 2020-11-19)
DX: U07.1 COVID-19 (principal); J96.01 Acute respiratory failure with hypoxia; J12.82 Pneumonia due to coronavirus disease 2019; A41.89 Other specified sepsis; R65.21 Severe sepsis with septic shock; I21.4 Non-ST elevation (NSTEMI) myocardial infarction; I42.8 Other cardiomyopathies; G89.29 Other chronic pain; Z51.5 Encounter for palliative care; M54.9 Dorsalgia, unspecified; I10 Essential (primary) hypertension; Z88.8 Allergy status to other drugs, medicaments and biological substances; E11.65 Type 2 diabetes mellitus with hyperglycemia; E86.0 Dehydration; Z79.899 Other long term (current) drug therapy; R57.0 Cardiogenic shock; E66.9 Obesity, unspecified; I50.9 Heart failure, unspecified; Z78.1 Physical restraint status
CPT/HCPCS: 31500; 31720; 36415; 36600; 51702; 71045; 71260; 80048; 80053; 80069; 80076; 81001; 82248; 82550; 82553; 82803; 82947; 83605; 83735; 83880; 84100; 84145; 84478; 84484; 85025; 85027; 85379; 86140; 87040; 87070; 87077; 87086; 87186; 87205; 93005; 93010; 93306; 93308; 93321; 93970; 94002; 94003; 94644; 94660; 94762; 95819; 96365-59; 96366-59; 96372-59; 96375-59; 99285-25; A9270; C9113; J0461; J0696; J1100; J1650; J1815; J1940; J1956; J2060; J2270; J2543; J2704; J3010; J3480; J7030; J7040; J7050; J7060; Q9967